=== PATIENT | female | born 1930 | race Caucasian/White ===

== ENCOUNTER 2016-06-14 | Outpatient (CLI) | payer MEDICARE | END 2016-06-14 11:43 | disposition critical access hospital (66) | CPT/HCPCS: A0425; A0429 ==

== ENCOUNTER 2016-06-14 12:54 | Emergency (ER) | payer MEDICARE ==
[2016-06-14] MEDS ORDERED: ACETAMINOPHEN 325 MG TABLET PO STA (14:33)
[2016-06-14] MEDS ORDERED: ACETAMINOPHEN 325 MG TABLET PO ONE (14:41)
== END 2016-06-14 17:30 | disposition home or self-care (01) ==
DX: S42.292A Other displaced fracture of upper end of left humerus, initial encounter for closed fracture (principal); W01.198A Fall on same level from slipping, tripping and stumbling with subsequent striking against other object, initial encounter; Y92.009 Unspecified place in unspecified non-institutional (private) residence as the place of occurrence of the external cause; Z79.01 Long term (current) use of anticoagulants
CPT/HCPCS: 36415; 70450; 72125; 73030; 73060; 73502; 80053; 83690; 85025; 85610; 99284; A9270

== ENCOUNTER 2016-11-27 23:58 | Outpatient (CLI) | payer MEDICARE | END 2016-11-27 23:59 | disposition home or self-care (01) | LOC: LAB.WCP 23:58 | PROVIDERS: ATTEND Family Medicine | DX: N39.0 Urinary tract infection, site not specified (principal) | CPT/HCPCS: 87077; 87086 ==

== ENCOUNTER 2017-01-13 19:09 | Outpatient (CLI) | payer MEDICARE, MEDICAID | END 2017-01-13 19:10 | disposition critical access hospital (66) | LOC: EMS 19:09 | PROVIDERS: ATTEND Surgery | DX: M79.601 Pain in right arm (principal) | CPT/HCPCS: A0425; A0429 ==

== ENCOUNTER 2017-01-13 19:28 | Emergency (ER) | payer MEDICARE, MEDICAID ==
--- NOTE | 2017-01-13 20:06 | ED Physician Documentation ---
History of Present Illness - Stated complaint Stated Complaint: RT ARM WEAKNESS AND PAIN, CONFUSION - Chief complaint Chief Complaint: Neuro - History obtained from History obtained from: Patient - History of Present Illness Timing: Yesterday - Additonal information Additional information: brought in by family; patient's daugher, at bedside, says patient has RUE problem since yesterday; unclear if it is weak or painful to move, but she has been using her LUE to move the RUE, and in a limited range at that. Also, family notes patient has been more confused than usual since earlier today, and has exhibited generalized weakness since this morning. Review of Systems Unable to obtain: Confused (limited ROS due to confusion) Constitutional: denies: Fever, Chills, Sweats Cardiac: denies: Chest pain / pressure Respiratory: denies: Dyspnea, Cough GI: denies: Vomiting, Diarrhea Musculoskeletal: denies: Joint pain (RUE) Neurologic: reports: Generalized weakness PD PAST MEDICAL HISTORY - Past Medical History Cardiovascular: VA, Arrhythmia, Other Neuro: Dementia, CVA GI: Other Derm: Other - Past Surgical History Past Surgical History: Yes Cardiovascular: Pacemaker - Present Medications Home Medications: Ambulatory Orders Medication Instructions Recorded Confirmed Aspirin Chewable [St Óscar 1 tab PO DAILY 01/13/17 01/13/17 Aspirin] Atorvastatin [Lipitor] 20 mg PO DAILY 01/13/17 01/13/17 Carvedilol [Coreg] 1 tab PO BID 01/13/17 01/13/17 Cephalexin [Keflex] 500 mg PO Q6HR 7 Days 01/13/17 Cholecalciferol (Vitamin D3) 1 tab PO DAILY 01/13/17 01/13/17 [Vitamin D3] Cranberry Fruit Concentrate 1 tab PO DAILY 01/13/17 01/13/17 [Cranberry] Ferrous Sulfate [Slow Fe] 1 tab PO DAILY 01/13/17 01/13/17 Fesoterodine Fumarate [Toviaz] 1 tab PO DAILY 01/13/17 01/13/17 Furosemide [Lasix] 1 tab PO DAILY 01/13/17 01/13/17 Glucosam/Chondr-MSM#6/Manganes 1 tab PO DAILY 01/13/17 01/13/17 [Glucosamine-Chondroitin Sftgl] Levothyroxine [Synthroid] 50 mg PO DAILY 01/13/17 01/13/17 Multivitamin [Multivitamins] 1 tab PO DAILY 01/13/17 01/13/17 Cordova-3/Dha/Epa/Fish Oil [Cordova 3 1 tab PO DAILY 01/13/17 01/13/17 500 Softgel] Sertraline HCl 1 tab PO DAILY 01/13/17 01/13/17 Trimethoprim 1 tab PO DAILY 01/13/17 01/13/17 Warfarin [Coumadin] 1 tab PO 01/13/17 - Allergies Allergies/Adverse Reactions: Allergies Allergy/AdvReac Type Severity Reaction Status Date / Time morphine Allergy Anaphylaxis Verified 01/13/17 19:46 Sulfa (Sulfonamide AdvReac Rash Verified 06/14/16 13:06 Antibiotics) - Social History Does the pt smoke?: No Smoking Status: Never smoker Does the pt drink ETOH?: No Does the pt have substance abuse?: No - Immunizations Immunizations are current?: No PD ED PE NORMAL - Vitals Vital signs reviewed: Yes - General General: No acute distress, Well developed/nourished, Other (awake, alert, answers are sometimes confused) - HEENT HEENT: Atraumatic, PERRL, EOMI, Moist mucous membranes - Cardiac Cardiac: RRR, No murmur - Respiratory Respiratory: No respiratory distress, Clear bilaterally - Abdomen Abdomen: Soft, Non tender - Derm Derm: Normal color, Warm and dry - Extremities Extremities: No edema, Other (tenderness to palpation right shoulder, anterolateral aspect) - Neuro Neuro: senior network engineer 2-12 intact, Normal speech, Other (4/5 bilateral plantarflexion. 3/5 bilateral leg raise (iliopsoas). 4/5 bilateral contract clerk automobile strength) Results - Vitals Vitals: Vital Signs - 24 hr 01/13/17 01/13/17 19:33 21:46 Temperature 36.6 C 36.1 C L Heart Rate 70 84 Respiratory 18 18 Rate Blood Pressure 145/82 H 138/66 H O2 Saturation 93 95 Oxygen O2 Source Room air - EKG (time done) No standard instances Rate: Rate (enter#) (71) Rhythm: Paced Drexel: LAD Intervals: Wide QRS - Labs Labs: Laboratory Tests 01/13/17 01/13/17 01/13/17 20:00 20:26 20:26 WBC 9.9 RBC 3.91 L Hgb 12.2 Hct 36.7 L MCV 93.9 MCH 31.2 H MCHC 33.2 RDW 15.6 H Plt Count 149 MPV 8.2 Neut # 6.4 Lymph # 2.5 Monona # 1.0 Eos # 0.0 Baso # 0.0 Absolute Nucleated RBC 0.00 Nucleated RBCs 0.0 PT INR APTT Sodium 136 Potassium 3.8 Chloride 101 Carbon Dioxide 27 Anion Gap 8.0 BUN 19 Creatinine 1.0 Estimated GFR (MDRD) 53 L Glucose 126 H Calcium 9.1 Total Bilirubin 0.7 AST 25 ALT 20 Alkaline Phosphatase 74 Total Protein 7.5 Albumin 3.5 Globulin 4.0 Albumin/Globulin Ratio 0.9 L Lipase 18 L Urine Color YELLOW Urine Clarity CLEAR Urine pH 6.0 Ur Specific B[place] 1.025 Urine Protein NEGATIVE Urine Glucose (UA) NEGATIVE Urine Ketones NEGATIVE Urine Occult Blood MODERATE H Urine Nitrite POSITIVE H Urine Bilirubin NEGATIVE Urine Urobilinogen 0.2 (NORMAL) Ur Leukocyte Esterase NEGATIVE Urine RBC 6-10 H Urine WBC 6-10 H Urine WBC Clumps PRESENT Ur Squamous Epith Cells FEW Squamous Urine Bacteria Many H Ur Microscopic Review INDICATED Urine Culture Comments INDICATED 01/13/17 20:26 WBC RBC Hgb Hct MCV MCH MCHC RDW Plt Count MPV Neut # Lymph # Monona # Eos # Baso # Absolute Nucleated RBC Nucleated RBCs PT 20.9 H INR 1.8 H APTT 33.2 Sodium Potassium Chloride Carbon Dioxide Anion Gap BUN Creatinine Estimated GFR (MDRD) Glucose Calcium Total Bilirubin AST ALT Alkaline Phosphatase Total Protein Albumin Globulin Albumin/Globulin Ratio Lipase Urine Color Urine Clarity Urine pH Ur Specific [place] Urine Protein Urine Glucose (UA) Urine Ketones Urine Occult Blood Urine Nitrite Urine Bilirubin Urine Urobilinogen Ur Leukocyte Esterase Urine RBC Urine WBC Urine WBC Clumps Ur Squamous Epith Cells Urine Bacteria Ur Microscopic Review Urine Culture Comments - Rads (name of study) CT head Radiology: Prelim report reviewed, See rad report right shoulder xrays Radiology: Prelim report reviewed, See rad report PD MEDICAL DECISION MAKING - ED course Complexity details: reviewed results, re-evaluated patient, considered differential, d/w family Departure - Departure Disposition: 01 Home, Self Care Clinical Impression: Urinary tract infection Condition: Good Instructions: ED UTI Cystitis Female Follow-Up: Fernando Genao MD [Primary Care Provider] - (Call in the morning to arrange for next available appointment) Prescriptions: Cephalexin [Keflex] 500 mg PO Q6HR 7 Days Discharge Date/Time: 01/13/17 22:30
[2017-01-13 20:07] LABS: BILIRUBIN,URINE NEGATIVE (NEGATIVE)
[2017-01-13 20:08] LABS: UA w/ MICROSCOPIC CHARGE YES
[2017-01-13 20:15] LABS: UR CULTURE IF IND INDICATED
[2017-01-13 20:42] LABS: BASOPHILS % (AUTO) 0.3 %; EOSINOPHILS % (AUTO) 0.1 %; HCT - HEMATOCRIT 36.7 % (37.0-47.0); HGB - HEMOGLOBIN 12.2 g/dL (12.0-16.0); LYMPHOCYTES # (AUTO) 2.5 10^3/uL (1.5-3.5); LYMPHOCYTES % (AUTO) 25.2 %; MEAN CORPUSCULAR HEMOGLOBIN 31.2 pg (27.0-31.0); MEAN CORPUSCULAR HGB CONC 33.2 g/dL (32.0-36.0); MEAN CORPUSCULAR VOLUME 93.9 fL (81.0-99.0); MEAN PLATELET VOLUME 8.2 fL (7.9-10.8); NEUTROPHILS # (AUTO) 6.4 10^3/uL (1.5-6.6); NEUTROPHILS % (AUTO) 64.4 %; RED BLOOD COUNT 3.91 10^6/uL (4.20-5.40); RED CELL DISTRIBUTION WIDTH 15.6 % (12.0-15.0); UNCORRECTED WHITE BLOOD COUNT 9.9 x10^3/uL; WHITE BLOOD COUNT 9.9 x10^3/uL (4.8-10.8)
[2017-01-13 20:49] LABS: INR 1.8 (0.8-1.2); PT - PROTHROMBIN TIME 20.9 secs (9.9-12.6)
[2017-01-13 20:53] LABS: ALBUMIN/GLOBULIN RATIO 0.9 (1.0-2.2); BILIRUBIN,TOTAL 0.7 mg/dL (0.2-1.0); CALCIUM 9.1 mg/dL (8.5-10.3); POTASSIUM 3.8 mmol/L (3.5-5.0); TOTAL PROTEIN 7.5 g/dL (6.7-8.2)
[2017-01-13 20:56] LABS: PARTIAL THROMBOPLASTIN TIME 33.2 secs (24.9-33.3)
--- NOTE | 2017-01-13 21:02 | CT Preliminary Report ---
Exam: CT Head W/O IMPRESSION: 1. Bilateral maxillary sinus mucosal disease. 2. Generalized age-related cortical atrophic changes without evidence of acute intracranial abnormali ty. [facility] SITE ID: [id number]
--- NOTE | 2017-01-13 21:14 | CT Report ---
EXAM: CT HEAD EXAM DATE: 01/13/2017 08:41 PM. CLINICAL HISTORY: Altered mental status. COMPARISON: 06/14/[address] TECHNIQUE: Multiaxial CT images were obtained from the foramen magnum to the vertex. IV contrast: Non e. Reformats: Coronal. In accordance with CT protocol optimization, one or more of the following dose reduction techniques w ere utilized for this exam: automated exposure control, adjustment of mA and/or KV based on patient s ize, or use of iterative reconstructive technique. FINDINGS: Parenchyma: No intraparenchymal hemorrhage. No evidence of mass, midline shift, or CT findings of acu te infarction. William-white differentiation is distinct. Extraaxial Spaces: Normal for age. No subdural or epidural collections identified. Ventricles: The ventricles and cortical sulci are enlarged, consistent with age-related tissue loss. Sinuses: Mucosal thickening and air-fluid levels are noted in both maxillary sinuses. Mastoids are cl ear. Remaining paranasal sinuses are unremarkable. Bones: No evidence of fracture or calvarial defect. Other: Diffuse chronic microangiopathic white matter changes are evident. IMPRESSION: 1. Bilateral maxillary sinus mucosal disease. 2. Generalized age-related cortical atrophic changes without evidence of acute intracranial abnormali ty. [facility] Referring Provider Line: [phone] SITE ID: [id number]
--- NOTE | 2017-01-13 21:14 | XRAY Preliminary Report ---
Exam: XR Shoulder 3 View RT IMPRESSION: 1. Mild degenerative changes. 2. No acute bony abnormality. [facility] SITE ID: [id number]
--- NOTE | 2017-01-13 21:25 | XRAY Report ---
EXAM: RIGHT SHOULDER RADIOGRAPHY EXAM DATE: 01/13/2017 08:55 PM. CLINICAL HISTORY: Limited range of motion, tenderness. COMPARISON: None. TECHNIQUE: 3 views. FINDINGS: Bones: Remote sternotomy. No fracture or bone lesion. Joints: Small osteophytes and subcortical sclerosis at the acromioclavicular joint. Mild narrowing at the glenohumeral joint with tiny osteophytes off the glenoid rim. Bones and anatomic alignment. Soft tissues: The visualized hemithorax is unremarkable. No soft tissue swelling. IMPRESSION: 1. Mild degenerative changes. 2. No acute bony abnormality. [facility] Referring Provider Line: [phone] SITE ID: [id number]
[2017-01-13] MEDS ORDERED: ACETAMINOPHEN 325 MG TABLET PO STA (21:39)
[2017-01-13] MEDS ORDERED: CEPHALEXIN 250 MG CAPSULE PO STA (21:41)
[2017-01-13 21:46] VITALS: BP 138/66
[2017-01-13] MEDS ORDERED: CEPHALEXIN 250 MG CAPSULE PO ONE (21:47)
[2017-01-13] MEDS ORDERED: ACETAMINOPHEN 325 MG TABLET PO ONE (21:47)
== END 2017-01-13 22:30 | disposition home or self-care (01) ==
LOC: EDUNIT# → ED 19:28
DX: N39.0 Urinary tract infection, site not specified (principal); M25.511 Pain in right shoulder; I25.2 Old myocardial infarction; I49.9 Cardiac arrhythmia, unspecified; F03.90 Unspecified dementia, unspecified severity, without behavioral disturbance, psychotic disturbance, mood disturbance, and anxiety; Z86.73 Personal history of transient ischemic attack (TIA), and cerebral infarction without residual deficits; Z95.0 Presence of cardiac pacemaker; Z79.82 Long term (current) use of aspirin; Z79.01 Long term (current) use of anticoagulants
CPT/HCPCS: 36415; 51701; 70450; 73030; 80053; 81001; 83690; 85025; 85610; 85730; 87077; 87086; 87181; 93005; 99284; A9270; 81003

== ENCOUNTER 2017-02-07 11:30 | Outpatient (CLI) | payer MEDICARE, MEDICAID ==
[2017-02-07 19:39] LABS: BASOPHILS % (AUTO) 0.7 %; EOSINOPHILS % (AUTO) 0.9 %; HCT - HEMATOCRIT 39.1 % (37.0-47.0); HGB - HEMOGLOBIN 12.7 g/dL (12.0-16.0); LYMPHOCYTES # (AUTO) 1.5 10^3/uL (1.5-3.5); MEAN CORPUSCULAR HEMOGLOBIN 30.6 pg (27.0-31.0); MEAN CORPUSCULAR HGB CONC 32.5 g/dL (32.0-36.0); MEAN CORPUSCULAR VOLUME 94.1 fL (81.0-99.0); MEAN PLATELET VOLUME 8.5 fL (7.9-10.8); MONOCYTES # (AUTO) 0.4 10^3/uL (0.0-1.0); MONOCYTES % (AUTO) 8.7 %; NEUTROPHILS # (AUTO) 3.1 10^3/uL (1.5-6.6); NEUTROPHILS % (AUTO) 59.7 %; NUCLEATED RED BLOOD CELLS AUTO 0.2 /100WBC; RED BLOOD COUNT 4.16 10^6/uL (4.20-5.40); RED CELL DISTRIBUTION WIDTH 15.4 % (12.0-15.0); UNCORRECTED WHITE BLOOD COUNT 5.1 x10^3/uL; WHITE BLOOD COUNT 5.1 x10^3/uL (4.8-10.8)
[2017-02-07 19:49] LABS: ALBUMIN/GLOBULIN RATIO 0.9 (1.0-2.2); BILIRUBIN,TOTAL 0.7 mg/dL (0.2-1.0); BUN - BLOOD UREA NITROGEN 17 mg/dL (6-20); CALCIUM 9.2 mg/dL (8.5-10.3); CARBON DIOXIDE - CO2 32 mmol/L (21-32); CHLORIDE 102 mmol/L (101-111); CREATININE 0.9 mg/dL (0.4-1.0); GFR - MDRD 59 (>89); GLUCOSE 95 mg/dL (70-100); POTASSIUM 3.3 mmol/L (3.5-5.0); SODIUM 140 mmol/L (135-145); TOTAL PROTEIN 7.6 g/dL (6.7-8.2)
== END 2017-02-07 11:31 | disposition home or self-care (01) ==
LOC: LAB.WCP 11:30
PROVIDERS: ATTEND Family Medicine
DX: I48.0 Paroxysmal atrial fibrillation (principal); I50.9 Heart failure, unspecified; I25.10 Atherosclerotic heart disease of native coronary artery without angina pectoris; I10 Essential (primary) hypertension
CPT/HCPCS: 36415; 80053; 83880; 84443; 85025

== ENCOUNTER 2017-02-21 11:00 | Outpatient (CLI) | payer MEDICARE, MEDICAID ==
[2017-02-21 19:37] LABS: CALCIUM 9.1 mg/dL (8.5-10.3); CREATININE 0.9 mg/dL (0.4-1.0); POTASSIUM 3.6 mmol/L (3.5-5.0)
== END 2017-02-21 11:01 | disposition home or self-care (01) ==
LOC: LAB.WCP 11:00
PROVIDERS: ATTEND Physician Assistant
DX: R60.0 Localized edema (principal)
CPT/HCPCS: 36415; 80048

== ENCOUNTER 2017-10-03 16:01 | Outpatient (CLI) | payer MEDICARE, MEDICAID ==
--- NOTE | 2017-10-07 12:01 | Mammography Report ---
DIGITAL SCREENING MAMMOGRAM: 10/03/2017 CLINICAL INDICATION: An 87-year-old with family history of breast cancer for screening. COMPARISON: 04/2015, 04/2014, 07/2012, 06/2011, 06/2010. TECHNIQUE: Routine CC and MLO projections were obtained of the breasts. Positioning is limited by the patient's general condition. FINDINGS: The breasts again demonstrate scattered fibroglandular densities bilaterally. Coarse and punctate, typically benign calcifications are present. No suspicious masses, clustered microcalcifications, or regions of architectural distortion are identified. IMPRESSION: BENIGN FINDINGS. RECOMMENDATION: Routine annual screening unless otherwise clinically indicated. BI-RADS CATEGORY 2 - BENIGN FINDINGS. STANDARD QUALIFYING STATEMENTS: 1. This examination was reviewed with the aid of Computer-Aided Detection (CAD). 2. A negative or benign imaging report should not delay biopsy if clinically suspicious findings are present. Consider surgical consultation if warranted. More than 5% of cancers are not identified by imaging. 3. Dense breasts may obscure an underlying neoplasm. TD: 10/07/2017 11:55
== END 2017-10-03 16:02 | disposition home or self-care (01) ==
LOC: DI.N 16:01
PROVIDERS: ATTEND Family Medicine
DX: Z12.31 Encounter for screening mammogram for malignant neoplasm of breast (principal)
CPT/HCPCS: 77067

== ENCOUNTER 2017-10-25 12:41 | Outpatient (CLI) | payer MEDICARE, MEDICAID ==
--- NOTE | 2017-10-26 00:43 | XRAY Report ---
EXAM: BILATERAL KNEE RADIOGRAPHY EXAM DATE: 10/25/2017 01:51 PM. CLINICAL HISTORY: OSTEOARTHRITIS SEVERE. COMPARISON: 11/13/2016. TECHNIQUE: 2 views each knee. FINDINGS: Right: Bones: Normal. No fractures or bone lesions. Joints: Severe osteoarthritis, with complete collapse of the medial femorotibial joint space. No effu janene. Soft Tissues: Surgical clips in the medial soft tissues. Dystrophic calcifications. Left: Bones: Normal. No fracture or bone lesion. Joints: Severe osteoarthritis, with complete collapse of the medial femorotibial joint space. Soft Tissues: Normal. No soft tissue swelling. IMPRESSION: Severe bilateral osteoarthritis. Right: Kellgren Monico Grade 4. Left: Kellgren Monico Grade 4. Kellgren and Monico classification of osteoarthritis: Grade 0: no radiographic features of osteoarthritis are present Grade 1: doubtful joint space narrowing (JSN) and possible osteophytic lipping Grade 2: definite osteophytes and possible JSN on anteroposterior weight-bearing radiograph Grade 3: multiple osteophytes, definite JSN, sclerosis, possible bony deformity Grade 4: large osteophytes, marked JSN, severe sclerosis and definite bony deformity [facility] Referring Provider Line: [phone] SITE ID: [id number]
== END 2017-10-25 12:42 | disposition home or self-care (01) ==
LOC: DI 12:41
PROVIDERS: ATTEND Family Medicine
DX: M17.0 Bilateral primary osteoarthritis of knee (principal)
CPT/HCPCS: 73565

== ENCOUNTER 2017-10-30 12:00 | Outpatient (CLI) | payer MEDICARE, MEDICAID | END 2017-10-30 12:01 | disposition home or self-care (01) | LOC: LAB.WCP 12:00 | PROVIDERS: ATTEND Family Medicine | DX: N39.0 Urinary tract infection, site not specified (principal) | CPT/HCPCS: 87077; 87086; 87181 ==

== ENCOUNTER 2017-11-12 08:00 | Outpatient (CLI) | payer MEDICARE, MEDICAID ==
[2017-11-12 18:49] LABS: BILIRUBIN,URINE NEGATIVE (NEGATIVE); GLUCOSE, URINE (UA) NEGATIVE (NEGATIVE); KETONES,URINE (UA) NEGATIVE (NEGATIVE); LEUKOCYTE ESTERASE, URINE MODERATE (NEGATIVE); NITRITE,URINE POSITIVE (NEGATIVE); OCCULT BLOOD,URINE SMALL (NEGATIVE); PH,URINE 5.5 PH (5.0-7.5); PROTEIN,URINE NEGATIVE (NEGATIVE); UROBILINOGEN,URINE 0.2 (NORMAL) E.U./dL (NORMAL)
[2017-11-12 19:06] LABS: BACTERIA,URINE Moderate /HPF (None Seen); CLARITY,URINE CLEAR (CLEAR); RBC,URINE 0-5 /HPF (0-5); SQUAMOUS EPITHELIAL CELL,UR RARE Squamous (<= Few); WBC CLUMPS,URINE PRESENT
== END 2017-11-12 08:01 ==
LOC: LAB.WCP 08:00
PROVIDERS: ATTEND Family Medicine
DX: N39.0 Urinary tract infection, site not specified (principal)
CPT/HCPCS: 81001; 87077; 87086; 87181

== ENCOUNTER → 2018-01-21 | Outpatient (CLI) | payer MEDICARE, MEDICAID | LOC: LAB.WCP 08:00 | PROVIDERS: ATTEND Family Medicine | DX: N39.0 Urinary tract infection, site not specified (principal) | CPT/HCPCS: 87086 ==

== ENCOUNTER 2018-02-04 20:37 | Outpatient (CLI) | payer MEDICARE, MEDICAID ==
--- NOTE | 2018-02-04 20:58 | CONSULTATION NOTE ---
Palliative Care Consultation - Referral Referring Provider: Dr. Deloris Bolton/Dr. Caleb Genao Time of Visit: Referral setting: Home Referral Reason: Dementia/Recurrent UTIs/Functional decline - Information Sources Records reviewed: Previous records reviewed History/Review of Systems obtained from: Patient, Family (most of history from Milka daughter) Exam limitations: Clinical condition (patient with dementia) - History of Present Illness Brief History of Present Illness: This is an 87-year-old woman to has multiple comorbidities, and has had ongoing functional and cognitive decline. 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 She has lived with her daughter for about 10 years, originally she was quite self-sufficient, able to drive, and manage her own care. She started having problems with navigating is how her stroke was revealed. She has become more dependent particularly since her left shoulder fracture in 2017. She is wheelchair-bound at this point, can pivot and take few steps for transfers, is having some trouble with swallowing, needs assistance with feeding with cueing and oversight, she can speak with a few short sentences, and answer some yes or no questions. She is incontinent unless doing timed toileting, and has had increasing problems with recurrent UTIs, which are demonstarted with increased confusion, weakness, and changes in the urine.. She has been tried prophylactically on trimethoprim as, she is allergic to sulfa. But became resistant to this, most recently trialed on nitrofurantoin 100 mg, but her most recent urine specimen that was cultured in October showed it resistance to this as well. She has just recently completed a round of Augmentin, and previous to this was treated with Levaquin in October She has multiple other comorbidities including atrial fib, with a history of cardioversion, currently on Coumadin, heart failure, osteoarthritis, ischemic bowel, and treated for depression. Patient's dementia does not present with neuropsychiatric behaviors she has no agitation, hallucinations, or paranoia. Patient becoming more homebound, functional status and cognitive status declining, palliative care to provide support with the focus on quality of life recognizing quantity of life is limited. Here also to establish goals of care. Medical/Surgical History - Past Medical History Cardiovascular: reports: Congestive heart failure, Coronary artery disease, MT, Atrial fibrillation Neuro: reports: Dementia, CVA GI: reports: Other (ischemic bowel disease in 2009) : reports: Incontinence, Chronic bladder infection, Renal insuffiency HEENT: reports: Chronic vision loss, Glaucoma, Chronic hearing loss Psych: reports: Depression Musculoskeletal: reports: Osteoarthritis, Other (left shoulder fracture 2017; right rib fracture 2018) MRSA Hx?: No - Past Surgical History General: reports: Bowel surgery (resection for ischemic bowel), Hiatal hernia repair Cardiovascular: reports: CABG, Pacemaker Social History - Living Situation Living arrangement: Other (living at daughter's home) Living Situation: With family (living with Daughter Milka and ; Milka works almost full-time. They do have [employer] with 215 hours per month, currently they have 2 caregivers, using IPP. They do use [employer]endez has in [place] about once a week, she does enjoy a socializations. She is not having the [employer] transport anymore, because she is getting very difficult.) Family History - Family History Family History: Mother: (father MT age 60), MT (mother at 76, ), Father: , CAD, MT, Other family: Alive and Well (siblings one heart attack/one cancer) Family History Comment/Other: has 2 boys; 6 girls; 40 years [facility] Medications/Allergies - Medications Home Medications: Ambulatory Orders Medication Instructions Recorded Confirmed Aspirin Chewable [St Óscar 81 mg PO DAILY 01/13/17 02/04/18 Aspirin] Atorvastatin [Lipitor] 20 mg PO DAILY 01/13/17 02/04/18 Carvedilol [Coreg] 12.5 mg PO BID 01/13/17 01/13/17 Cholecalciferol (Vitamin D3) 2,000 units PO DAILY 01/13/17 01/13/17 [Vitamin D3] Ferrous Sulfate [Slow Fe] 325 mg PO DAILY 01/13/17 02/04/18 Fesoterodine Fumarate [Toviaz] 4 mg PO DAILY 01/13/17 01/13/17 Furosemide [Lasix] 40 mg PO DAILY 01/13/17 02/04/18 Levothyroxine [Synthroid] 50 mg PO DAILY 01/13/17 02/04/18 Sertraline HCl 50 mg PO DAILY 01/13/17 02/08/18 Warfarin [Coumadin] 1 tab PO 01/13/17 D-Mannose [Mannxtra] 600 mg PO DAILY 02/04/18 02/04/18 Nitrofurantoin [Macrobid] 100 mg PO DAILY 02/04/18 02/04/18 - Allergies Allergies/Adverse Reactions: Allergies Allergy/AdvReac Type Severity Reaction Status Date / Time morphine Allergy Anaphylaxis Verified 01/13/17 19:46 Sulfa (Sulfonamide AdvReac Rash Verified 06/14/16 13:06 Antibiotics) Review of Systems - Constitutional Constitutional: reports: Fatigue, Weight stable (161.7). denies: Fever, Chills - Eyes Eyes: reports: Vision loss - Ears, Nose & Throat Ears, Nose & Throat: reports: Hearing loss, Other (some choking noted; is able to self feed is supervised and cued) - Cardiovascular Cardiovascular: reports: Edema, Decr. exercise tolerance, Other (CHF known ejection %) - Gastrointestinal Gastrointestinal: reports: Good appetite - Genitourinary Genitourinary: reports: Incontinence - Musculoskeletal Musculoskeletal: reports: Stiffness, Muscle weakness, Assistive devices (needs cueing and assistance to transfer) - Integumentary Integumentary: reports: Dryness - Neurological Neurological: reports: General weakness, Memory problems (able to responds yes/no; a few sentences but does not initiate conversation; responsive and interactive with family/caregivers) - Psychiatric Psychiatric: denies: Depression, Anxiety - Hematologic/Lymphatic Hematologic/Lymphatic: reports: Recurrent infections (UTIs; becoming more resistent; memory issues worsen) - All Other Systems All Other Systems: reports: Reviewed and negative Physical Exam - Vital Signs Temperature: 96.1 C Pulse Rate: 72 Respiratory Rate: 18 O2 Saturation: 92 (ra @ rest) Blood Pressure: 118/64 - Physical Exam General Appearance: positive: No acute distress Eyes Bilateral: positive: Normal inspection ENT: positive: No signs of dehydration Neck: positive: No JVD, Trachea midline Cardiovascular: positive: Irregularly irregular Respiratory: positive: Diminished in bases Abdomen: positive: Non-tender, Soft, Nml bowel sounds Skin: positive: Pallor, Dryness Extremities: positive: Pedal edema (trace pedal edema) Neurologic/Psychiatric: positive: Mood/affect nml, Disoriented to place, Disoriented to time, Facial droop (left residual from CVA) Palliative Care - POLST Patient has POLST: Yes POLST Status: Full Code (discussed with daughter needs to be updated to DNAR; but needs to talk to siblings) Pain: Pain unchanged, Location (left shoulder pain from fall/fracture; displaced not a surgical candidate; has bilat knee osteoarthritis; has had injections with some improvement) Performance Status: Patient quite impulsive needs to be watched most the time, she is dependent for all ADLs including bathing, dressing, toileting and. Care. She can mostly self-feed, but needs supervision and cueing to be safe, she does have some choking at times. She needs her food cut in small bites. She has significant mobility issues, balance and impulsivity makes it unsafe for her to ambulate with walker. - Palliative Care Discussion: Discussed goals for patient with daughter. Reports the original JES ST, was based on an experience/story patient had heard around that time. Daughter herself recognizes patient's fragile status, that DNA are is more appropriate given the current setting, but does need to check in follow-up with her siblings. JES ST was reviewed as well as provided "hard choices for loving people". Her goal is to focus on keeping her as comfortable and at home as long as possible, because he does need to work and has not really done any further long-term planning in the context of if patient worsens. But is much more difficult to get her out, is hoping palliative care to provide support regarding patient's propensity for UTIs, is interested in home coag check, and wanting to explore things that might improve patient's quality of life. Impression and Recommendations - Palliative Care Impression: This is an 87-year-old woman with multiple comorbidities, presenting with functional and cognitive decline, and very frail. She is high risk for the sequela of a fall and there is concern for her developing multidrug resistance to ongoing UTIs. Palliative care to continue provide support for defining goals of care, symptom management, and simplifying treatment plan if possible. Recommendations/Counseling Done: 1. Atrial fib. Patient has been on Coumadin, is becoming more numerous to take the patient out. Discussed patient may be a candidate actually to have an alternative, including Eliquis. This is also would increase her safety if she were to have a fall or problems with bleeding. She is in agreement for me to follow with Dr. Bolton regarding this, did agree if does need ongoing pro times, would contact and arrange for [employer] home monitoring system. 2. Frequent UTIs. Patient just finished antibiotic, she thought may be would be having some increased symptoms that was a little bit soon for this. She did have some increased confusion and word finding. Patient quite interactive and doing better today. Did discuss patient with her dementia will have fluctuating status, because of her increasing multidrug resistance, will try and get specimens prior to treatment. Patient though can be treated in the meantime, has most recently responded to Augmentin. I follow-up on last urine specimen is resistant to nitrofurantoin, instructed to discontinue this at this point. She is on d-mannose 600 mg daily for prevention, this is only been shown to find it effective in E. coli, her last 2 specimens have Klebsiella pneumonia. Counseling regarding this is going to be a significant issue moving forward she does have had and urine specimens, will contact me if symptoms and will continue to weigh benefits and burdens of treating moving forward. 3. Advanced care planning. Discussed JES ST with daughter, patient no longer presents with decision-making capacity. Does feel most appropriate to have patient has a DNA R, but will follow up with family and address at next visit. Did discuss given she is on ermias, would suggest putting her on wait list for different dementia units, she would continue to decline and needed further placement this can be complicated. Will continue to evaluate may need to meet with medical palliative care social sciences instructor if her care needs increased dramatically. face to face for wheelchair Patient needs a high strength lightweight wheelchair as a way to correct for height for patient to self propel with her feet.Patient's height of 58 inches requires lower seat to floor height to increase independence with self propulsion for ADLs.Client is more likely to use feet for propulsion due to increased pain with movement in left shoulder from previous fracture. Patient is unable to use cane or walker for functional mobility in her home because of need for assistance, cognitive deficits, balance issues, decreased strength and high fall risk. Patient will be reliant upon a wheelchair to accomplish all related aids to daily living in the home such as toileting, feeding, bathing, and grooming due to her mobility limitations. Addendum. 02/05. Did hear back from Dr. Bolton in agreement and feels would be a good plan for patient to transition over to Eliquis. Daughter has been instructed to DC aspirin and warfarin, and start Eliquis next day. Time Spent: 90 minutes with greater than 50% of this done in counseling coordination of care regarding [id number] for wheelchair, follow-up with PCP regarding anticoagulant issues, counseling for pain and symptom management as well as anticipatory guidance and advanced care planning
== END 2018-02-04 20:38 | disposition home or self-care (01) ==
LOC: PC 20:37
PROVIDERS: ATTEND Nurse Practitioner Adult Health
DX: Z51.5 Encounter for palliative care (principal); F01.50 Vascular dementia, unspecified severity, without behavioral disturbance, psychotic disturbance, mood disturbance, and anxiety; I48.91 Unspecified atrial fibrillation; Z87.440 Personal history of urinary (tract) infections; R29.6 Repeated falls; I50.9 Heart failure, unspecified; F32.9 Major depressive disorder, single episode, unspecified; Z79.01 Long term (current) use of anticoagulants; R13.10 Dysphagia, unspecified; R32 Unspecified urinary incontinence; Z99.3 Dependence on wheelchair; S42.92XS Fracture of left shoulder girdle, part unspecified, sequela; M25.512 Pain in left shoulder; W19.XXXS Unspecified fall, sequela; R54 Age-related physical debility; I69.918 Other symptoms and signs involving cognitive functions following unspecified cerebrovascular disease; H40.9 Unspecified glaucoma; H54.7 Unspecified visual loss; H91.90 Unspecified hearing loss, unspecified ear; M19.90 Unspecified osteoarthritis, unspecified site; Z95.1 Presence of aortocoronary bypass graft; Z95.0 Presence of cardiac pacemaker; Z79.82 Long term (current) use of aspirin
CPT/HCPCS: 99345

== ENCOUNTER 2018-02-19 12:20 | Outpatient (CLI) | payer MEDICARE, MEDICAID ==
--- NOTE | 2018-02-19 19:05 | CONSULTATION NOTE ---
Palliative Care Follow Up - Referral Referring Provider: Dr. Cindy Bolton Time of Visit: 03-05 Referral setting: Home - Information Sources Records reviewed: Previous records reviewed History/Review of Systems obtained from: Patient, Family (daughter Milka providing most of history) Exam limitations: Clinical condition (patient with advanced dementia) - History of Present Illness Update Brief HPI Update: This is an 87-year-old woman with dementia, has multiple comorbidities and ongoing functional and cognitive decline. 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 She does live with her daughter Milka, for about 10 years, had originally been is quite self-sufficient and now is very much dependent. She is mostly wheelchair bound at this point, has some trouble with swallowing, definitely is having increased needs for cueing, sequencing, and oversight as she is impulsive. She is incontinent and less doing time toileting, she has had frequent UTIs, that are usually identified by alteration in mental status. Previously she was fluctuating as far as confusion and energy day to day, now she is somewhat demonstrating this issue just through the out the day. She is not in any kind of distress, She is verbal and able to respond to questions, but does not initiate conversation. She has recently finished a round of Augmentin, was treated with Levaquin in October, we did discontinue her prophylactic Macrobid as her last C&S showed resistance to this medication. She has multiple other comorbidities including atrial fib, with a history of cardioversion, she has been transitioned over to Eliquis off Coumadin. She also has known heart failure, osteoarthritis, of concern and watchful waiting is ischemic bowel, and being treated for depression. Patient now is mostly homebound, and it is with great difficulty to get her on going out to appointments, palliative care to provide support and anticipatory guidance reg arding patient's ongoing decline Social History - Living Situation Living arrangement: At home Living Situation: With family (lives with daugther and ; Daughter will be going on vacation, she will be staying with her other daughter Farida eng at [address] in [place]. Her phone number is [phone]. This will be 02/21 through 03/06.They do have an independent provider for ermias 3 days a week, they have had difficulty getting her other hours filled through breast care, this is been quite frustration for the daughter. They are looking for another independent provider. If she is unable to get caregiving, she does take her up to [facility] in adult daycare.) Medications/Allergies - Medications Home Medications: Ambulatory Orders Medication Instructions Recorded Confirmed Aspirin Chewable [St Óscar 81 mg PO DAILY 01/13/17 02/20/18 Aspirin] Atorvastatin [Lipitor] 20 mg PO DAILY 01/13/17 02/20/18 Carvedilol [Coreg] 12.5 mg PO BID 01/13/17 02/20/18 Cholecalciferol (Vitamin D3) 2,000 units PO DAILY 01/13/17 02/20/18 [Vitamin D3] Ferrous Sulfate [Slow Fe] 325 mg PO DAILY 01/13/17 02/20/18 Fesoterodine Fumarate [Toviaz] 4 mg PO DAILY 01/13/17 02/20/18 Furosemide [Lasix] 40 mg PO DAILY 01/13/17 02/20/18 Levothyroxine [Synthroid] 50 mg PO DAILY 01/13/17 02/20/18 Sertraline HCl 50 mg PO DAILY 01/13/17 02/20/18 D-Mannose [Mannxtra] 600 mg PO DAILY 02/04/18 02/20/18 Apixaban [Eliquis] 5 mg PO BID 02/20/18 02/20/18 - Allergies Allergies/Adverse Reactions: Allergies Allergy/AdvReac Type Severity Reaction Status Date / Time morphine Allergy Anaphylaxis Verified 01/13/17 19:46 Sulfa (Sulfonamide AdvReac Rash Verified 06/14/16 13:06 Antibiotics) Review of Systems - Constitutional Constitutional: reports: Fatigue, Weight loss (159.8 down a few pounds from baseline) - Ears, Nose & Throat Ears, Nose & Throat: reports: Dental decay - Cardiovascular Cardiovascular: reports: Irregular heart rate, Edema, Decr. exercise tolerance - Respiratory Respiratory: denies: SOB at rest - Gastrointestinal Gastrointestinal: reports: Other. denies: Constipation, Nausea - Genitourinary Genitourinary: reports: Incontinence - Musculoskeletal Musculoskeletal: reports: Stiffness, Muscle weakness, Assistive devices (working with PT to strengthen LE to maintiain abilitly to transfer, can only walk few steps with walker/supervision/cueing), Transfer issues (pivot transfers with assist) - Neurological Neurological: reports: Memory problems (able to speak in sentences/answer easy questions/ not always appropriate answers/very sweet sense of humor) - Psychiatric Psychiatric: reports: Hallucinations (occasionally worse with UTIs), Other (impulsive). denies: Behavior disturbances - Hematologic/Lymphatic Hematologic/Lymphatic: reports: Recurrent infections (UTIs) - All Other Systems All Other Systems: reports: Reviewed and negative Physical Exam - Vital Signs Temperature: 95.9 C Pulse Rate: 70 Respiratory Rate: 18 O2 Saturation: 95 (ra @ rest) Blood Pressure: 112/72 - Physical Exam General Appearance: positive: No acute distress Eyes Bilateral: positive: Normal inspection ENT: positive: No signs of dehydration Neck: positive: No JVD, Trachea midline Cardiovascular: positive: Irregularly irregular Respiratory: positive: Breath sounds nml, Diminished in bases Abdomen: positive: Non-tender, Soft, Nml bowel sounds Skin: positive: Dryness, Other (few scratches). negative: Pressure wound Extremities: positive: Pedal edema (trace up to knees) Neurologic/Psychiatric: positive: Mood/affect nml, Disoriented to time, Weakness. negative: Depressed mood/affect Palliative Care - POLST Patient has POLST: Yes POLST Status: Full Code Pain: No pain Performance Status: Patient dependent for all ADLs, she does have some difficulty eating and needs some assist, they have to cut up her food fairly fine, most of assistance is not related to swallowing but cueing as far as the steps to eat. She does have 24-hour care and supervision provided between the daughter and caregivers. - Palliative Care Discussion: Daughter had explored POLST, and does feel like she needs to be a DO NOT RESUSCITATE. She feels like her sister in [place] is in agreement, will be seeing her brother and needs to finish talking to family. Aware currently defaults to full code, will address at our next visit as she is the designated DPOA. Patient herself is quite delightful, she finds that her memory is getting worse and she finds it "aggravating". She perceives all the help and care she is getting as "making her get lazy", but she does enjoy the attention. Daughter's perception is she still has good quality of life, is aware and able to interact with family, and does not have a high degree of suffering. Impression and Recommendations - Palliative Care Impression: This is an 87-year-old woman with multiple comorbidities, including vascular dementia, recurrent UTIs, atrial fib, and functional decline. She is at high risk for this sequela of a fall, concern for developing multiple drug resistance to her ongoing UTIs, and history of ischemic bowel. Palliative care to continue provide support for defining goals of care, symptom management, and simplifying treatment plan. Recommendations/Counseling Done: 1. Atrial fib. Patient has been started on Eliquis, no further need for pro time monitoring, this is decreased stressors dramatically in the home. 2. Generalized weakness. Phone call and follow-up on ordered wheelchair, will deliver while at sister's house. Patient continue to work with physical therapy, goal is to maintain and be able to continue with transfers to be able to remain in daughter's home. 3. Frequent UTIs. Reviewed threshold as far as symptom management and symptomology for obtaining Urine specimen. Daughter verbalizes understanding, he does have a, order slip, and hazard bag has been instructed to notify me and delivered to [employer] if symptomatic. 4. Advanced care planning. Follow-up regarding the J[facility] with daughter, does feel she should be a DNA R, will be traveling this next couple weeks, seeing family and plans to confirm and review goals with other siblings. Time Spent: 60 minutes with good 50% of this done in counseling regarding symptom management, anticipatory guidance, and goal's of care counseling
== END 2018-02-19 12:21 | disposition home or self-care (01) ==
LOC: PC 12:20
PROVIDERS: ATTEND Nurse Practitioner Adult Health
DX: Z51.5 Encounter for palliative care (principal); I48.91 Unspecified atrial fibrillation; R53.1 Weakness; R53.83 Other fatigue; Z87.440 Personal history of urinary (tract) infections; R32 Unspecified urinary incontinence; I63.9 Cerebral infarction, unspecified; F01.50 Vascular dementia, unspecified severity, without behavioral disturbance, psychotic disturbance, mood disturbance, and anxiety; I50.9 Heart failure, unspecified; F32.9 Major depressive disorder, single episode, unspecified; R13.10 Dysphagia, unspecified; Z99.3 Dependence on wheelchair; R29.6 Repeated falls; M19.90 Unspecified osteoarthritis, unspecified site; Z79.01 Long term (current) use of anticoagulants; Z79.82 Long term (current) use of aspirin
CPT/HCPCS: 99350

== ENCOUNTER 2018-02-24 11:20 | Outpatient (CLI) | payer MEDICARE, MEDICAID ==
[2018-02-24 19:28] LABS: BILIRUBIN,URINE NEGATIVE (NEGATIVE); GLUCOSE, URINE (UA) NEGATIVE (NEGATIVE); KETONES,URINE (UA) NEGATIVE (NEGATIVE); LEUKOCYTE ESTERASE, URINE MODERATE (NEGATIVE); NITRITE,URINE NEGATIVE (NEGATIVE); OCCULT BLOOD,URINE SMALL (NEGATIVE); PROTEIN,URINE NEGATIVE (NEGATIVE); UROBILINOGEN,URINE 0.2 (NORMAL) E.U./dL (NORMAL)
[2018-02-24 19:29] LABS: CLARITY,URINE HAZY (CLEAR)
[2018-02-24 19:55] LABS: BACTERIA,URINE Few /HPF (None Seen); RBC,URINE 0-5 /HPF (0-5); SQUAMOUS EPITHELIAL CELL,UR RARE Squamous (<= Few)
== END 2018-02-24 11:21 | disposition home or self-care (01) ==
LOC: LAB.WCP 11:20
PROVIDERS: ATTEND Nurse Practitioner Adult Health
DX: R30.0 Dysuria (principal)
CPT/HCPCS: 81001; 81003; 87086; 87181

== ENCOUNTER 2018-03-25 16:52 | Outpatient (CLI) | payer MEDICARE, MEDICAID ==
--- NOTE | 2018-03-25 16:58 | CONSULTATION NOTE ---
Palliative Care Follow Up - Referral Referring Provider: Dr. Deloris Bolton Time of Visit: Referral setting: Home Referral Reason: CHF/f/up Pontine hemmorhage/[facility] - Information Sources Records reviewed: Previous records reviewed History/Review of Systems obtained from: Patient, Family (update by daughter Milka beginning of visit;), Caregiver (caregiver Madie) Exam limitations: Clinical condition (patient with advanced dementia) - History of Present Illness Update Brief HPI Update: This is Destiny 87-year-old woman who has dementia, has multiple comorbidities, her dementia as a result of his CVA and noted to be vascular in origin. Unfortunately when she was at a daycare, she had a fall after she lost her balance. She sustained a small 0.8 x 0.6 cm acute hemorrhage in the anterior margin of the hermes. She does have noted severe diffuse cerebral volume loss, and micro vascular chronic ischemic changes, as well as chronic bilateral occipital infarcts and right thalamic lacunar infarct. Patient was seen at [facility], they kept her for [address] a repeat CT scan that was unchanged. They did put her Eliquis on hold. Patient was also found to be hypovolemic, and has had her Lasix on hold as well. She does have a small laceration in the back of her head that is healing nicely with 4 noted bandar, and a skin tear along with severe bruising on her left forearm of 1.5 x 2.5 cm very shallow no signs or symptoms of infection. Originally it is thought her left wrist was without fracture, and follow-up at the provider's office they did find a break per her daughter. Patient presents today is alert, interactive, her neuro signs are within normal limits. She is her usual verbal self, can answer questions, has a good sense of humor, her short-term memory and answers can be somewhat nonsensical but she does socially engaged. She has trace pedal edema up to about mid calf, she has some fine crackles in her left lower lobe, Denies any respiratory distress. Her O2 sats are 95% on room air at rest. She does have some discomfort with her wrist but only on a manipulation, otherwise denies pain. She does not recall the fall though she is aware she has had a fall particularly with the splint on her left arm. She does have some swelling in her fingers, circulation is good, and movement without concern. Social History - Living Situation Living arrangement: At home Living Situation: With family Support System: Patient lives at home with her daughter, who does work. She does have a regular caregiver Madie, who is there for the visit today, this is supplied to [facility]. When she does not have a caregiver, she does take her to daycare up in [place] this is where the accident had happened. Milka has recently taken a vacation, she reports this has helped with her caregiver fatigue, though this has been quite a stressful turn of events. Medications/Allergies - Medications Home Medications: Ambulatory Orders Medication Instructions Recorded Confirmed Aspirin Chewable [St Óscar 81 mg PO DAILY 01/13/17 03/25/18 Aspirin] Atorvastatin [Lipitor] 20 mg PO DAILY 01/13/17 03/25/18 Carvedilol [Coreg] 12.5 mg PO BID 01/13/17 03/25/18 Cholecalciferol (Vitamin D3) 2,000 units PO DAILY 01/13/17 03/25/18 [Vitamin D3] Ferrous Sulfate [Slow Fe] 325 mg PO DAILY 01/13/17 03/25/18 Fesoterodine Fumarate [Toviaz] 4 mg PO DAILY 01/13/17 03/25/18 Furosemide [Lasix] 20 mg PO DAILY 01/13/17 03/25/18 Levothyroxine [Synthroid] 50 mg PO DAILY 01/13/17 03/25/18 Sertraline HCl 50 mg PO DAILY 01/13/17 03/25/18 D-Mannose [Mannxtra] 600 mg PO DAILY 02/04/18 03/25/18 Apixaban [Eliquis] 5 mg PO . HOLD BID 02/20/18 03/25/18 - Allergies Allergies/Adverse Reactions: Allergies Allergy/AdvReac Type Severity Reaction Status Date / Time morphine Allergy Anaphylaxis Verified 01/13/17 19:46 Sulfa (Sulfonamide AdvReac Rash Verified 06/14/16 13:06 Antibiotics) Review of Systems - Constitutional Constitutional: reports: Fatigue. denies: Fever - Ears, Nose & Throat Ears, Nose & Throat: reports: Dental decay - Respiratory Respiratory: denies: SOB at rest - Gastrointestinal Gastrointestinal: reports: Good appetite. denies: Abdominal pain, Constipation, Diarrhea, Nausea - Genitourinary Genitourinary: reports: Incontinence - Musculoskeletal Musculoskeletal: reports: Stiffness, Limited range of motion (left side now with broken wrist), Muscle weakness, Transfer issues (still able to transfer; no walking) - Integumentary Integumentary: reports: Dryness, Other (skin tear left arm) - Neurological Neurological: reports: General weakness, Memory problems - Psychiatric Psychiatric: denies: Depression, Anxiety - Endocrine Endocrine: reports: Hypothyroidism - Hematologic/Lymphatic Hematologic/Lymphatic: reports: Bruising - All Other Systems All Other Systems: reports: Reviewed and negative Physical Exam - Vital Signs Temperature: 96.4 C Pulse Rate: 72 (irregular) Respiratory Rate: 18 O2 Saturation: 95 (ra @ rest) Blood Pressure: 118/82 - Physical Exam General Appearance: positive: No acute distress, Alert Eyes Bilateral: positive: Normal inspection ENT: positive: No signs of dehydration, Other (missing many teeth) Neck: positive: No JVD, Trachea midline. negative: Lymphadenopathy (R), Lymphadenopathy (L) Cardiovascular: positive: Irregular Respiratory: positive: Diminished in bases, Rales (crackles LLL, no cough). negative: Wheezes Abdomen: positive: Soft, Nml bowel sounds Skin: positive: Pallor, Dryness, Wound (see HPI) Extremities: positive: Pedal edema Neurologic/Psychiatric: positive: Mood/affect nml, Disoriented to time, Weakness Palliative Care - POLST Patient has POLST: No Pain: Location (at left wrist; with movement only; denies headache; knees tender to palpation) Constipation: No Feelings of wellbeing/Perceived Quality of Life: Good, Acceptable Performance Status: Patient still able to feed herself, needs cueing and monitoring. No choking observed. Patient is actually transferring okay despite the left wrist brace. She has not been ambulating for the last few days, but can pivot transfer. - Palliative Care Discussion: Daughter not present for the visit, we had agreed to revisit advanced care planning on her return, she did ask for a follow-up visit relating concerns about her recent fall. Patient currently manageable with her current level of functioning, if deteriorated would need to look at another arrangement. Patient is getting more more difficult to get out, is helpful to be able to access care at home Impression and Recommendations - Palliative Care Impression: This is a 87-year-old woman with multiple comorbidities, including vascular dementia, recurrent UTIs, atrial fib, and functional decline. She did have a ground-level fall with a pontine hemorrhage, does appear to be recovering without any acute symptoms of neurological demise. She is currently with her anti-coag Eliquis on hold, has been instructed to follow-up on this coming Friday. Palliative care addressing acute concerns for follow-up and home visit, will continue to provide support for defining goals of care, symptom management, and simplifying treatment plan Recommendations/Counseling Done: 1. Congestive heart failure. Patient has been on hold for her furosemide 40 mg daily, this was held secondary to hypotension. Patient does not present with hypotension or signs of dehydration at visit today. She does have some symptoms of fluid overload with some mild lower extremity edema and crackles in her left lower lobe. Will restart gently at 20 mg daily, can reevaluate at her Friday MD visit. Daughter absent from home, given patient half tab furosemide as caregiver cannot independently medicate. 2. Pontine hemorrhage. Patient's neuro checks appear within normal limits. Patient denies headache pain or changes in vision. Scalp laceration stapled with 4 bandar no signs or symptoms of infection. 3. Skin tear left arm. Cleansed with normal saline, reapplied skin care/tear dressing. No signs or symptoms of infection instructed to leave on 5-7 days. 4. History of UTIs. Patient did present with positive urine and symptoms during daughter's absence, has been treated appears to be resolved at this point in time. She is on d-mannose to attempt to prevent further infections. 5. Advanced care planning. Will defer to future visits as not available to meet with daughter today. Time Spent: 40 minutes with getting 50% of this done in counseling regarding medication management and anticipatory guidance, wound care completed
== END 2018-03-25 16:53 | disposition home or self-care (01) ==
LOC: PC 16:52
PROVIDERS: ATTEND Nurse Practitioner Adult Health
DX: Z51.5 Encounter for palliative care (principal); I69.911 Memory deficit following unspecified cerebrovascular disease; F01.50 Vascular dementia, unspecified severity, without behavioral disturbance, psychotic disturbance, mood disturbance, and anxiety; I50.9 Heart failure, unspecified; F32.9 Major depressive disorder, single episode, unspecified; R32 Unspecified urinary incontinence; E03.9 Hypothyroidism, unspecified; I48.91 Unspecified atrial fibrillation; S06.309D Unspecified focal traumatic brain injury with loss of consciousness of unspecified duration, subsequent encounter; S41.102D Unspecified open wound of left upper arm, subsequent encounter; S69.92XD Unspecified injury of left wrist, hand and finger(s), subsequent encounter; W19.XXXD Unspecified fall, subsequent encounter; R29.6 Repeated falls; Z87.440 Personal history of urinary (tract) infections; Z79.82 Long term (current) use of aspirin; Z79.01 Long term (current) use of anticoagulants
CPT/HCPCS: 99349

== ENCOUNTER 2018-07-16 08:00 | Outpatient (CLI) | payer MEDICARE, MEDICAID ==
[2018-07-16 19:58] LABS: BILIRUBIN,URINE NEGATIVE (NEGATIVE); GLUCOSE, URINE (UA) NEGATIVE (NEGATIVE); KETONES,URINE (UA) NEGATIVE (NEGATIVE); LEUKOCYTE ESTERASE, URINE LARGE (NEGATIVE); NITRITE,URINE NEGATIVE (NEGATIVE); OCCULT BLOOD,URINE TRACE-LYSE (NEGATIVE); PH,URINE 6.5 PH (5.0-7.5); PROTEIN,URINE NEGATIVE (NEGATIVE); UROBILINOGEN,URINE 0.2 (NORMAL) E.U./dL (NORMAL)
[2018-07-16 20:11] LABS: CLARITY,URINE CLOUDY (CLEAR)
[2018-07-16 20:12] LABS: BACTERIA,URINE Few /HPF (None Seen); SQUAMOUS EPITHELIAL CELL,UR FEW Squamous (<= Few)
== END 2018-07-16 23:59 | disposition home or self-care (01) ==
LOC: LAB.R 08:00
PROVIDERS: ATTEND Nurse Practitioner Adult Health
DX: R30.0 Dysuria (principal)
CPT/HCPCS: 81001; 81003; 87077; 87086; 87181

== ENCOUNTER 2018-07-19 12:58 | Outpatient (CLI) | payer MEDICARE, MEDICAID | END 2018-07-19 12:59 | disposition short-term general hospital (02) | LOC: EMS 12:58 | PROVIDERS: ATTEND Surgery | DX: R41.82 Altered mental status, unspecified (principal) | CPT/HCPCS: A0425; A0429 ==

== ENCOUNTER 2018-10-15 16:14 | Outpatient (CLI) | payer MEDICARE, MEDICAID ==
--- NOTE | 2018-10-15 16:57 | CONSULTATION NOTE ---
Palliative Care Follow Up - Referral Referring Provider: Dr. Cindy Bolton Time of Visit: [id number] Referral setting: Home Referral Reason: Cough/Dementia/Goals of Care - Information Sources Records reviewed: Previous records reviewed History/Review of Systems obtained from: Family (raúl Jarquin provided information) Exam limitations: Clinical condition (patient with dementia; but can answer yes/no to some questions) - History of Present Illness Update Brief HPI Update: This is a delightful 88-year-old woman who has dementia, of vascular origin, with multiple comorbidities including atrial fib on Eliquis, heart failure, osteoarthritis, history of ischemic bowel, and history of depression. Patient had developed in June, acute mental status changes, and was admitted to [facility] with UTI and sepsis. Patient has long-term history of recurrent UTIs. She was discharged then to the [facility], for rehab, this was a fairly negative experience for the daughter, she was returned home and then supported by [facility]. Had agreed in the context of support that home health services was adequate at this point in time, but they have since discharge and palliative care visit today to evaluate cough, complete goals of care conversation, and establish new baseline. Patient had been with viral upper respiratory infection in early August, had been doing fairly well had cleared at baseline and now has recurrence. She does have a moist cough, it is mostly upper bronchial, her lungs are clear, no wheezing, crackles are rhonchi. Her O2 sats are 91%, she does not have any changes in her mental status, her appetite's been good, she has not been noted to have any choking. She has had a history of it about for 1 week, does notice that it is improving, they do have an inhaler from when they last saw Dr. Grossman for last episode, difficult for patient to comprehend given her dementia. Patient has been discontinued off her carver Gela by her [employer] supervisor as well as her Toviaz as this was not available. Her daughter does feel like she has been a little bit more clear, she does present is bright eyed, easily engaged, still has a week a little smile and sense of humor. She denies any distress, is easily engaged but only able to answer questions of yes no matter relevant to her current status. Patient has had ongoing cognitive decline, daughter is willing to continue to be primary caregiver with [employer] support as long as patient can transfer. Patient did gain some functional status back with PT/OT, can walk a few steps, and pivot transfer actually her most limiting symptom is her knee pain as far as tolerating activity. This is controlled with acetaminophen 500 mg tabs 1-2 tabs twice daily. Revisit of POLST, patient has been a full code up to this point in time, daughter is been talking to her other 5 siblings, does feel at this point in time she has agreement to be able to change this. We will go ahead and update JES ST to reflect current goals of care. Social History - Living Situation Living arrangement: At home Living Situation: With family Support System: Patient lives with her daughter Milka who is her primary caregiver, she does work and has 4 days of caregiving through [employer]. She does have some stable caregivers though this fluctuates at times. Her other sister down in [place], does take her for a week and here there to give her some respite. Medications/Allergies - Medications Home Medications: Ambulatory Orders Medication Instructions Recorded Confirmed Atorvastatin [Lipitor] 20 mg PO DAILY 01/13/17 05/14/18 Cholecalciferol (Vitamin D3) 2,000 units PO DAILY 01/13/17 10/15/18 [Vitamin D3] Ferrous Sulfate [Slow Fe] 325 mg PO DAILY 01/13/17 10/15/18 Furosemide [Lasix] 40 mg PO .QOD 01/13/17 10/15/18 Levothyroxine [Synthroid] 50 mcg PO DAILY 01/13/17 10/15/18 Sertraline HCl 50 mg PO DAILY 01/13/17 10/15/18 D-Mannose [Mannxtra] 600 mg PO DAILY 02/04/18 10/15/18 Apixaban [Eliquis] 2.5 mg PO BID 02/20/18 05/14/18 Acetaminophen 1,000 mg PO BID 10/15/18 10/15/18 Furosemide 20 mg PO .QOD 10/15/18 10/15/18 Guaifenesin [Mucinex] 600 mg PO BID PRN 10/15/18 10/15/18 Loperamide [Imodium] 1 mg PO DAILY PRN 10/15/18 10/15/18 - Allergies Allergies/Adverse Reactions: Allergies Allergy/AdvReac Type Severity Reaction Status Date / Time morphine Allergy Anaphylaxis Verified 01/13/17 19:46 Sulfa (Sulfonamide AdvReac Rash Verified 06/14/16 13:06 Antibiotics) Review of Systems - Constitutional Constitutional: reports: Fatigue, Weight loss (at time in [place] 154; feels may have gained a few pounds now home). denies: Fever, Chills - Ears, Nose & Throat Ears, Nose & Throat: reports: Hearing loss, Other (poor dentition) - Respiratory Respiratory: reports: Cough (moist), Sputum production (light yellow). denies: SOB at rest - Gastrointestinal Gastrointestinal: reports: Diarrhea (loose stools; uses 1/2 immodium every few days) - Genitourinary Genitourinary: reports: Incontinence - Musculoskeletal Musculoskeletal: reports: Stiffness, Muscle weakness, Joint pain (bilateral knee pain), Assistive devices (uses walker for few steps only), Transfer issues - Integumentary Integumentary: reports: Dryness - Neurological Neurological: reports: General weakness, Memory problems - Endocrine Endocrine: reports: Hypothyroidism - Hematologic/Lymphatic Hematologic/Lymphatic: reports: Recurrent infections (hx of UTI's) - All Other Systems All Other Systems: reports: Other (limited by dementia) Physical Exam - Vital Signs Temperature: 36.7 C Pulse Rate: 70 Respiratory Rate: 18 O2 Saturation: 91 (ra @ rest) Blood Pressure: 112/64 - Physical Exam General Appearance: positive: No acute distress, Alert Eyes Bilateral: positive: Normal inspection ENT: positive: No signs of dehydration Neck: positive: No JVD, Trachea midline Cardiovascular: positive: Regular rate & rhythm Respiratory: positive: Other (moist bronchial cough; clears with cough effort). negative: Wheezes, Rales Abdomen: positive: Non-tender, Soft, Nml bowel sounds Skin: positive: Pallor, Dryness Extremities: positive: Pedal edema (trace up to calf; improved from baseline; QOD dose addresses) Neurologic/Psychiatric: positive: Mood/affect nml, Disoriented to time Palliative Care - POLST Patient has POLST: Yes POLST Status: DNR, Selective Treatment (completed at today's visit) Pain: Pain unchanged, Location (bilateral knee pain; worse with increased activity; fluctuates) Tiredness/Fatigue: Moderate (4-6) Drowsiness/Sedation: Mild (1-3) Performance Status: Patient is able to get from sit to stand with maximum assist, can pivot and transfer, walk with a few steps with walker. She is dependent on caregivers for bathing, she is able to feed herself with cueing and encouragement. She does need 24/7 supervision. She does have [employer] for 4 days a week. - Palliative Care Discussion: Patient denies any concerns or worries. Conversation with daughter to revisit JES AUGUSTE, reports she has had final conversations with other siblings other than the one sister who is coming to visit today patient not seen for 6 years. We reviewed that she does want her to be a DNA R, she does understand that the sequela of CPR would be problematic. She is a selective treatments, they would treat reversible conditions, would not want to prolong any kind of suffering if she had decrease in her Quality of life and or unable to maintain the level of independence she has currently at her daughter's. We discussed end of life, daughter does not feel like if she were going to have a prolonged decline that she would want to care for her in the home setting. She was distressed though at her experience of Jim, so will need to revisit at the time of her decline what makes sense. She would like to keep her home for as long as possible. She very much enjoys her mom though it is a significant amount of work for her to care for her in the home setting. At this point in time would accept antibiotics, she has had frequent antibiotics through the course of her multiple UTIs, as well as it would depend on the situation regarding medically assisted nutrition. We discussed these are not decisions that need to be made at this point in time, though could be weighed in the context of the situation in the future Impression and Recommendations - Palliative Care Impression: This is an 88-year-old woman with multiple comorbidities who presents with increased moist cough, most likely viral in origin today. She also continues with cognitive decline, though is doing much better after her recent hospital stay and support through home health. They have taken her off her Toviaz and carvediol, daughter does feel this is increased her alertness. Palliative care to continue provide support regarding goals of care, focusing on quality of life, anticipatory guidance. Recommendations/Counseling Done: 1. Cough. Patient does present with moist cough, no acute signs or symptoms of progressive respiratory decline, most likely viral in origin. Did review with daughter increased signs or symptoms to follow-up with chest x-ray. She is doing somewhat better, will continue with the guaifenesin 600 mg twice daily to help with secretions, did encourage to try and use inhaler if possible. 2. CHF. Patient recently with [employer] supervisor, patient continues to be quite hypotensive, did discontinue carver Gela. Daughter is aware patient's heart continues to be of poor functioning, there is really nothing more to do diagnostically or to support medical the any changes. They do expect ongoing decline. 3. Lower extremity edema. Patient is on furosemide alternating 20 with 40 every other day, this does appear to manage her lower extremity edema without adding to the hypotension now that she is off the carvidiol. Daughter continues to monitor appropriately. 4. Pain bilateral secondary osteoarthritis. Patient currently on acetaminophen 1000 mg twice daily, with PRN dosing of 500 mg in between. Counseling provided regarding the use of topicals, consider CBD, Aspercreme, or Biofreeze. Patient is not a candidate for NSAIDs given her underlying cardiac. 5. Advanced care planning. Completed POLST today with daughter, copy taken for medical record. [place]our[place] to [place] Will get copy to her primary care provider. Counseling provided regarding goals of care and implementation of the POLST. Time Spent: 45 minutes with greater than 50% of this done in counseling regarding goals of care, management of symptoms, and anticipatory guidance
== END 2018-10-15 16:15 | disposition home or self-care (01) ==
LOC: PC 16:14
PROVIDERS: ATTEND Nurse Practitioner Adult Health
DX: Z51.5 Encounter for palliative care (principal); F01.50 Vascular dementia, unspecified severity, without behavioral disturbance, psychotic disturbance, mood disturbance, and anxiety; I48.91 Unspecified atrial fibrillation; F32.9 Major depressive disorder, single episode, unspecified; I50.9 Heart failure, unspecified; R05 Cough; M19.90 Unspecified osteoarthritis, unspecified site; M25.561 Pain in right knee; M25.562 Pain in left knee; H91.90 Unspecified hearing loss, unspecified ear; R19.7 Diarrhea, unspecified; R32 Unspecified urinary incontinence; E03.9 Hypothyroidism, unspecified; I95.9 Hypotension, unspecified; Z66 Do not resuscitate; Z87.440 Personal history of urinary (tract) infections; Z79.01 Long term (current) use of anticoagulants
CPT/HCPCS: 99349

== ENCOUNTER 2019-02-28 11:20 | Outpatient (CLI) | payer MEDICARE, MEDICAID | END 2019-02-28 11:21 | disposition EMS.NT | LOC: EMS 11:20 | PROVIDERS: ATTEND Surgery | DX: Z03.89 Encounter for observation for other suspected diseases and conditions ruled out (principal) ==

== ENCOUNTER 2019-03-02 08:00 | Outpatient (CLI) | payer MEDICAID, MEDICARE ==
[2019-03-03 08:59] LABS: BILIRUBIN,URINE NEGATIVE (NEGATIVE); GLUCOSE, URINE (UA) NEGATIVE (NEGATIVE); KETONES,URINE (UA) NEGATIVE (NEGATIVE); LEUKOCYTE ESTERASE, URINE MODERATE (NEGATIVE); NITRITE,URINE POSITIVE (NEGATIVE); OCCULT BLOOD,URINE MODERATE (NEGATIVE); PH,URINE 5.5 PH (5.0-7.5); PROTEIN,URINE 30 mg/dL (NEGATIVE); UROBILINOGEN,URINE 0.2 (NORMAL) E.U./dL (NORMAL)
[2019-03-03 09:05] LABS: CLARITY,URINE HAZY (CLEAR)
[2019-03-03 09:12] LABS: BACTERIA,URINE Few /HPF (None Seen); SQUAMOUS EPITHELIAL CELL,UR FEW Squamous (<= Few)
== END 2019-03-02 23:59 | disposition home or self-care (01) ==
LOC: LAB.R 08:00
PROVIDERS: ATTEND Nurse Practitioner Adult Health
DX: R30.0 Dysuria (principal)
CPT/HCPCS: 81001; 81003; 87077; 87086; 87181

== ENCOUNTER 2019-03-07 15:11 | Outpatient (CLI) | payer MEDICARE | END 2019-03-07 15:12 | disposition critical access hospital (66) | LOC: EMS 15:11 | PROVIDERS: ATTEND Surgery | DX: R53.1 Weakness (principal) | CPT/HCPCS: A0425; A0429 ==

== ENCOUNTER 2019-03-07 15:33 | Emergency (ER) | payer MEDICARE ==
[2019-03-07] MEDS ORDERED: SODIUM CHLORIDE 0.9% 1,000 ML IV ONE (15:47)
--- NOTE | 2019-03-07 15:48 | ED Physician Documentation ---
History of Present Illness - Stated complaint Stated Complaint: AMS - Chief complaint Chief Complaint: General - History obtained from History obtained from: Family, EMS - History of Present Illness Timing: Other (This is a very pleasant but very demented 88-year-old woman who presents by ambulance accompanied by her daughter at baseline she requires help with walking. She usually use is a walker combine with a gait belt. She requires assistance feeding herself. She is incontinent of urine. More recently she has had diarrhea and 5 days ago was diagnosed with a UTI. Culture was sensitive to Augmentin which she is on. Despite that she has had worsening with poor appetite and is now basically bedbound.) Review of Systems Unable to obtain: Dementia PD PAST MEDICAL HISTORY - Past Medical History Cardiovascular: Congestive heart failure, Coronary artery disease, DC, Atrial fibrillation GI: Other (ischemic bowel disease in 2009) : Incontinence, Chronic bladder infection, Renal insuffiency HEENT: Chronic vision loss, Glaucoma, Chronic hearing loss Psych: Depression Musculoskeletal: Osteoarthritis, Other (left shoulder fracture 2017; right rib fracture 2017) Derm: Other - Past Surgical History Past Surgical History: Yes General: Bowel surgery (resection for ischemic bowel), Hiatal hernia repair /CARDIAC CATH 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: Other Cardiovascular: CABG, Pacemaker - Present Medications Home Medications: Ambulatory Orders Medication Instructions Recorded Confirmed Atorvastatin [Lipitor] 20 mg PO DAILY 01/13/17 05/14/18 Cholecalciferol (Vitamin D3) 2,000 units PO DAILY 01/13/17 10/15/18 [Vitamin D3] Ferrous Sulfate [Slow Fe] 325 mg PO DAILY 01/13/17 10/15/18 Furosemide [Lasix] 40 mg PO .QOD 01/13/17 10/15/18 Levothyroxine [Synthroid] 50 mcg PO DAILY 01/13/17 10/15/18 Sertraline HCl 50 mg PO DAILY 01/13/17 10/15/18 D-Mannose [Mannxtra] 600 mg PO DAILY 02/04/18 10/15/18 Apixaban [Eliquis] 2.5 mg PO BID 02/20/18 05/14/18 Acetaminophen 1,000 mg PO BID 10/15/18 10/15/18 Furosemide 20 mg PO .QOD 10/15/18 10/15/18 Guaifenesin [Mucinex] 600 mg PO BID PRN 10/15/18 10/15/18 Loperamide [Imodium] 1 mg PO DAILY PRN 10/15/18 10/15/18 - Allergies Allergies/Adverse Reactions: Allergies Allergy/AdvReac Type Severity Reaction Status Date / Time capsaicin Allergy Anaphylaxis Verified 03/07/19 15:44 cerivastatin [From Baycol] Allergy Anaphylaxis Verified 03/07/19 15:43 ciprofloxacin [From Cipro] Allergy Rash Verified 03/07/19 15:43 morphine Allergy Anaphylaxis Verified 01/13/17 19:46 Sulfa (Sulfonamide AdvReac Rash Verified 06/14/16 13:06 Antibiotics) - Social History Does the pt smoke?: No Smoking Status: Never smoker Does the pt drink ETOH?: No Does the pt have substance abuse?: No - Immunizations Immunizations are current?: No - POLST Patient has POLST: Yes PD ED PE NORMAL - Vitals Vital signs reviewed: Yes - General General: Other (She is alert and follows simple commands. She even has difficulty with orientation x1, she has to be prompted to say her name. She cannot verbalize where she grew up.) - HEENT HEENT: PERRL, EOMI - Neck Neck: Supple, no meningeal sign, No bony TTP - Cardiac Cardiac: RRR, Other (With soft early systolic murmur) - Respiratory Respiratory: Other (Rhonchi at the bases) - Abdomen Abdomen: Non tender - Extremities Extremities: No edema, No calf tenderness / cord - Neuro Eye Opening: Spontaneous Motor: Obeys Commands Verbal: Confused GCS Score: 14 Results - Vitals Vitals: Vital Signs - 24 hr 03/07/19 03/07/19 15:34 16:03 Temperature 36.6 C Heart Rate 70 70 Respiratory 20 20 Rate Blood Pressure 157/83 H 149/81 H O2 Saturation 95 97 Oxygen O2 Source Room air - Labs Labs: Laboratory Tests 03/07/19 03/07/19 03/07/19 16:25 16:25 16:25 WBC 5.9 RBC 3.91 L Hgb 12.8 Hct 40.5 MCV 103.6 H MCH 32.7 H MCHC 31.6 L RDW 16.1 H Plt Count 92 L MPV 10.9 H Neut # (Auto) 3.2 Lymph # (Auto) 2.1 [place] # (Auto) 0.5 Eos # (Auto) 0.0 Baso # (Auto) 0.0 Absolute Nucleated RBC 0.00 Nucleated RBC % 0.0 Sodium 141 Potassium 3.8 Chloride 106 Carbon Dioxide 25 Anion Gap 10.0 BUN 14 Creatinine 0.9 Estimated GFR (MDRD) 59 L Glucose 131 H Lactic Acid 2.0 Calcium 8.7 Total Bilirubin 1.4 H AST 24 ALT 12 Alkaline Phosphatase 110 Total Protein 7.2 Albumin 3.5 Globulin 3.7 Albumin/Globulin Ratio 0.9 L Lipase 18 L Urine Color Urine Clarity Urine pH Ur Specific [place] Urine Protein Urine Glucose (UA) Urine Ketones Urine Occult Blood Urine Nitrite Urine Bilirubin Urine Urobilinogen Ur Leukocyte Esterase Urine RBC Urine WBC Ur Squamous Epith Cells Urine Bacteria Urine Casts Ur Microscopic Review Urine Culture Comments 03/07/19 17:16 WBC RBC Hgb Hct MCV MCH MCHC RDW Plt Count MPV Neut # (Auto) Lymph # (Auto) [place] # (Auto) Eos # (Auto) Baso # (Auto) Absolute Nucleated RBC Nucleated RBC % Sodium Potassium Chloride Carbon Dioxide Anion Gap BUN Creatinine Estimated GFR (MDRD) Glucose Lactic Acid Calcium Total Bilirubin AST ALT Alkaline Phosphatase Total Protein Albumin Globulin Albumin/Globulin Ratio Lipase Urine Color ORANGE Urine Clarity CLEAR Urine pH 5.0 Ur Specific [place] >=1.030 H Urine Protein 30 H Urine Glucose (UA) NEGATIVE Urine Ketones NEGATIVE Urine Occult Blood SMALL H Urine Nitrite NEGATIVE Urine Bilirubin NEGATIVE Urine Urobilinogen 0.2 (NORMAL) Ur Leukocyte Esterase NEGATIVE Urine RBC 0-5 Urine WBC 0-3 Ur Squamous Epith Cells RARE Squamous Urine Bacteria None Seen Urine Casts 3-5 Hyaline Casts Ur Microscopic Review INDICATED Urine Culture Comments NOT INDICATED - Rads (name of study) 2v chest Radiology: EMP read contemporaneously (nad) PD MEDICAL DECISION MAKING - ED course ED course: 88-year-old woman with severe dementia, lives with family. With a decompensation after a UTI recently. She is on antibiotics and her urine is now clear with fairly unremarkable blood work. Offered observation stay in the hospital which the daughter declined. Departure - Departure Disposition: 01 Home, Self Care Clinical Impression: Muscle weakness Dementia Qualifiers: Dementia type: Alzheimer's disease Alzheimer's disease onset: unspecified onset Dementia behavioral disturbance: without behavioral disturbance Qualified Code(s): G30.9 - Alzheimer's disease, unspecified; F02.80 - Dementia in other diseases classified elsewhere without behavioral disturbance Condition: Good Record reviewed to determine appropriate education?: Yes Instructions: ED Dementia Caregiver Support Comments: Continue current medications. Return anytime if worsening or if you change your mind about stay in the hospital or would like to pursue correction placement. Discussed her medications with your primary care physician, not sure she should actually be on a statin anymore and Tootie deserves a conversation as well.
[2019-03-07 16:33] LABS: BASOPHILS % (AUTO) 0.5 %; EOSINOPHILS % (AUTO) 0.7 %; HGB - HEMOGLOBIN 12.8 g/dL (12.0-16.0); LYMPHOCYTES # (AUTO) 2.1 10^3/uL (1.5-3.5); MEAN CORPUSCULAR HEMOGLOBIN 32.7 pg (27.0-31.0); MEAN CORPUSCULAR HGB CONC 31.6 g/dL (32.0-36.0); MEAN CORPUSCULAR VOLUME 103.6 fL (81.0-99.0); MEAN PLATELET VOLUME 10.9 fL (7.9-10.8); MONOCYTES # (AUTO) 0.5 10^3/uL (0.0-1.0); MONOCYTES % (AUTO) 8.4 %; NEUTROPHILS # (AUTO) 3.2 10^3/uL (1.5-6.6); NEUTROPHILS % (AUTO) 54.1 %; PLT - PLATELET COUNT 92 10^3/uL (130-450); RED BLOOD COUNT 3.91 10^6/uL (4.20-5.40); RED CELL DISTRIBUTION WIDTH 16.1 % (12.0-15.0); WHITE BLOOD COUNT 5.9 x10^3/uL (4.8-10.8)
[2019-03-07 16:46] LABS: ALBUMIN 3.5 g/dL (3.2-5.5); ALBUMIN/GLOBULIN RATIO 0.9 (1.0-2.2); BILIRUBIN,TOTAL 1.4 mg/dL (0.2-1.0); CALCIUM 8.7 mg/dL (8.5-10.3); CREATININE 0.9 mg/dL (0.4-1.0); TOTAL PROTEIN 7.2 g/dL (6.7-8.2)
--- NOTE | 2019-03-07 17:04 | XRAY Report ---
Reason: cough Procedure Date: 03/07/2019 Accession Number: [id number] / [id number] Procedure: XR - Chest 2 View X-Ray CPT Code: 34609 FULL RESULT: EXAM: CHEST RADIOGRAPHY EXAM DATE: 03/07/2019 04:37 PM. CLINICAL HISTORY: Cough. COMPARISON: XR CHEST 1 VIEWS 07/13/2009 4:02 PM. TECHNIQUE: 2 views. FINDINGS: Lungs/Pleura: There are findings consistent with prior sternotomy. There is a pacemaker with leads in the region of the SA and AV nodes. No appreciable consolidation. No pleural effusions or pneumothoraces. Mediastinum: Mild cardiac enlargement. Other: Healed fracture of the left surgical neck of humerus. IMPRESSION: No acute pathology. RADIA
[2019-03-07 17:24] LABS: GLUCOSE, URINE (UA) NEGATIVE (NEGATIVE); KETONES,URINE (UA) NEGATIVE (NEGATIVE); LEUKOCYTE ESTERASE, URINE NEGATIVE (NEGATIVE); NITRITE,URINE NEGATIVE (NEGATIVE); OCCULT BLOOD,URINE SMALL (NEGATIVE); PROTEIN,URINE 30 mg/dL (NEGATIVE); UROBILINOGEN,URINE 0.2 (NORMAL) E.U./dL (NORMAL)
[2019-03-07 17:37] LABS: BACTERIA,URINE None Seen /HPF (None Seen); BILIRUBIN,URINE NEGATIVE (NEGATIVE); CLARITY,URINE CLEAR (CLEAR); ICTOTEST,URINE NEGATIVE; RBC,URINE 0-5 /HPF (0-5); SQUAMOUS EPITHELIAL CELL,UR RARE Squamous (<= Few)
[2019-03-07 17:38] LABS: CASTS, URINE 3-5 Hyaline Casts /LPF
[2019-03-07 18:45] VITALS: BP 145/80
== END 2019-03-07 19:30 | disposition home or self-care (01) ==
LOC: EDUNIT# → ED 15:33
DX: G30.9 Alzheimer's disease, unspecified (principal); F02.80 Dementia in other diseases classified elsewhere, unspecified severity, without behavioral disturbance, psychotic disturbance, mood disturbance, and anxiety; M62.81 Muscle weakness (generalized); R32 Unspecified urinary incontinence; Z95.0 Presence of cardiac pacemaker; Z79.01 Long term (current) use of anticoagulants
CPT/HCPCS: 36415; 51701; 71046; 80053; 81001; 81003; 83605; 83690; 85025; 87040; 87086; 99281; 99284

== ENCOUNTER 2019-03-07 19:31 | Outpatient (CLI) | payer MEDICARE | END 2019-03-07 19:32 | disposition home or self-care (01) | LOC: EMS 19:31 | PROVIDERS: ATTEND Surgery | DX: R41.0 Disorientation, unspecified (principal); R53.83 Other fatigue; Z74.01 Bed confinement status | CPT/HCPCS: A0425; A0428 ==

== ENCOUNTER 2019-03-10 09:00 | Outpatient (CLI) | payer MEDICARE ==
--- NOTE | 2019-03-10 10:09 | CONSULTATION NOTE ---
Palliative Care Follow Up - Referral Referring Provider: Dr. Cindy Bolotn Time of Visit: [phone] Referral setting: Home (seen at daughter demond's home) Referral Reason: Wheezing/AMS - Information Sources Records reviewed: Previous records reviewed History/Review of Systems obtained from: Family (estela Iqbal present for visit;), Caregiver (Janneth who has been with her since September) Exam limitations: Clinical condition (patient with advanced demential; mostly nonverbal) - History of Present Illness Update Brief HPI Update: This is a delightful 88-year-old woman who has dementia, vascular origin, and presents as a FAST7C. She has multiple comorbidities including atrial fib on Eliquis, heart failure, osteoarthritis, history of ischemic bowel, and history of depression. Earlier in the week her daughter Demond who is caring for her called on 8 has patient had altered mental status, increased signs and symptoms of a UTI, and increased weakness. Patient does have long-term history of this, and family fairly accurate in diagnosis. Indeed her UA came back as greater than 100,000, she was treated with amoxicillin/clavulanate 500 mg twice daily x7 days, she finished her last pill today. On 03/07 unfortunately she presented with increased altered mental status, poor appetite, unable to stand and with dehydration. She did receive 1 L of fluid in the ED, chest x-ray was negative, labs were fairly normal other than a bilirubin of 1.4; and GFR of 59 which is her norm. She did not have an elevated white count. They were offered in the office today but declined and she returned home with some improvement. I received a phone call late in the day yesterday, patient had presented with wheezing, decreased sats around 90%, and continued poor intake. She was a little bit better but not worsening, and had accepted a visit in follow-up today. Patient is continued to improve, they did have her sleep in the recliner with her head up today, she does not have lower extremity edema, no crackles, no rhonchi but she does have scattered expiratory wheezes and diminished in her bases. She is afebrile, she is eating and drinking, she is bright able to interact which is an improvement over yesterday. She is eating small amounts. She did void this morning as well as have a bowel movement. She is unable to manage her albuterol inhaler, and unfortunately at this daughter's house does not have available. She does have some respiratory effort, and remains weak, but is able to ambulate a few steps versus nonweightbearing.Daughter Milka, who is the main caregiver, recent turns this afternoon from being out of town. Social History - Living Situation Living arrangement: At home Living Situation: With family Support System: Patient has been staying with her daughter Demond while Milka has been traveling, Milka is her primary caregiver. She does work and has 4 days of caregiving to use [employer]. Her primary caregiver Janneth is present at visit today, reports that she has been having ongoing functional decline, with some increased weakness, and sleeping more overall. Though this was an acute change. Medications/Allergies - Medications Home Medications: Ambulatory Orders Medication Instructions Recorded Confirmed Atorvastatin [Lipitor] 20 mg PO DAILY 01/13/17 03/10/19 Cholecalciferol (Vitamin D3) 2,000 units PO DAILY 01/13/17 03/10/19 [Vitamin D3] Ferrous Sulfate [Slow Fe] 325 mg PO DAILY 01/13/17 03/10/19 Furosemide [Lasix] 40 mg PO .QOD 01/13/17 03/10/19 Levothyroxine [Synthroid] 50 mcg PO DAILY 01/13/17 03/10/19 Sertraline HCl 50 mg PO DAILY 01/13/17 03/10/19 D-Mannose [Mannxtra] 600 mg PO DAILY 02/04/18 03/10/19 Apixaban [Eliquis] 2.5 mg PO BID 02/20/18 03/10/19 Acetaminophen 1,000 mg PO BID 10/15/18 03/10/19 Furosemide 20 mg PO .QOD 10/15/18 03/10/19 Guaifenesin [Mucinex] 600 mg PO BID PRN 10/15/18 03/10/19 Loperamide [Imodium] 1 mg PO DAILY PRN 10/15/18 03/10/19 Carvedilol 3.125 mg PO BID 03/10/19 03/10/19 Saccharomyces Boulardii [Florastor] 250 mg PO BID MDD x 2weeks, then 03/10/19 03/10/19 daily - Allergies Allergies/Adverse Reactions: Allergies Allergy/AdvReac Type Severity Reaction Status Date / Time capsaicin Allergy Anaphylaxis Verified 03/07/19 15:44 cerivastatin [From Baycol] Allergy Anaphylaxis Verified 03/07/19 15:43 ciprofloxacin [From Cipro] Allergy Rash Verified 03/07/19 15:43 morphine Allergy Anaphylaxis Verified 01/13/17 19:46 Sulfa (Sulfonamide AdvReac Rash Verified 06/14/16 13:06 Antibiotics) Review of Systems - Constitutional Constitutional: reports: Fatigue (improved), Poor appetite. denies: Fever, Chills - Eyes Eyes: reports: Vision loss - Ears, Nose & Throat Ears, Nose & Throat: reports: Hearing loss, Other (poor dentition). denies: Mouth lesions - Cardiovascular Cardiovascular: reports: Irregular heart rate, Exertional dyspnea, Decr. exerc ise tolerance, Orthopnea. denies: Edema - Respiratory Respiratory: reports: Wheezing (had her sleep in recliner last night with improvement), Orthopnea, SOB at rest, SOB with exertion. denies: Cough - Gastrointestinal Gastrointestinal: reports: Diarrhea (regular bm today; baseline loose), Poor appetite (improving) - Genitourinary Genitourinary: reports: Incontinence - Musculoskeletal Musculoskeletal: reports: Muscle aches, Stiffness, Limited range of motion, Muscle weakness, Joint pain (bilateral knee pain; use topicals), Assistive devices (has walker for transfers), Transfer issues (usually up in wheelchair) - Integumentary Integumentary: reports: Dryness - Neurological Neurological: reports: General weakness, Memory problems (few words; laughs easily) - Psychiatric Psychiatric: denies: Depression, Anxiety - Endocrine Endocrine: reports: Hypothyroidism - Hematologic/Lymphatic Hematologic/Lymphatic: reports: Bruising (from ED stay), Recurrent infections (hx of utis). denies: Anemia - All Other Systems All Other Systems: reports: Reviewed and negative Physical Exam - Vital Signs Temperature: 96.7 C Pulse Rate: 70 Respiratory Rate: 18 O2 Saturation: 96 (ra @ rest) Blood Pressure: 152/92 - Physical Exam General Appearance: positive: No acute distress, Alert Eyes Bilateral: positive: Normal inspection ENT: negative: Pharyngeal erythema, Oral lesions Neck: positive: Trachea midline, Other (leans head to the left) Cardiovascular: positive: Irregular, Systolic murmur Respiratory: positive: Wheezes (scattered expiratory throughout). negative: No respiratory distress (appears labored with activity/conversation), Rales, Rhonchi Abdomen: positive: Non-tender, Soft, Nml bowel sounds Skin: positive: Pallor, Dryness, Bruising (UE from ED visit) Extremities: positive: Pedal edema (trace pedal edema) Neurologic/Psychiatric: positive: Mood/affect nml, Disoriented to place, Disoriented to time, Weakness Palliative Care - POLST Patient has POLST: Yes POLST Status: DNR, Selective Treatment Pain: Pain unchanged, Location (bilateral knee pain no s/s pain at visit) Sleep: Sleep improved (slept in recliner last night) Performance Status: Patient previous baseline, was able to ambulate few steps with walker for pivot transfers, needing 1 person assist. Patient today needs lifted assistance, 2 person for andrea-care, and remains quite weak and lower extremeities. Patient to be able to be at home successfully, needs to be a 1 person transfer. Patient has benefited in the past from physical therapy, will go ahead and do a [id number] as patient has deteriorated from baseline. - Palliative Care Discussion: Patient unfortunately has had a series of unfortunate events, including her UTI, trip to the ED, and slowly recovering from her acute illnesses. She is not back to baseline, discussed in the context of anticipatory guidance that often patients become at a place where they have a new normal. Unfortunately for her to be cared for at home, she does need to be able to be a 1 person transfer, to be able to meet her needs. Patient does have a POLST in place that was completed last time with daughter, with goal to treat reversible conditions, but end of life to have comfortable respectful at home if possible. Daughter Demond is aware of patient's fragility, will continue to provide support and anticipatory guidance with the hope patient does improve back to baseline. Results - Lab Results Lab results reviewed: Yes Impression and Recommendations - Palliative Care Impression: This is an 88-year-old woman who has had a series of unfortunate events, including acute UTI, altered mental status and decline with dehydration, received a liter fluid at ED suspect this tripped her CHF, and presents today improved but with continued wheezing. Goal is to treat for quality of life, she will be returning to her other daughter's home Milka later today. Patient remains quite fragile, with a goal to focus on quality of life issues. Palliative care to continue provide support Recommendations/Counseling Done: 1. UTI. Patient has improved her fluid intake over the last few hours, she did have a regular void in the bathroom today. She does not appear dehydrated. She did finish her last antibiotic. 2. Wheezing. I suspect this is multifactorial in origin, patient's chest x-ray on the was negative. She did receive a liter of fluid though in the ED, as well as has a history of dyshagia. She is currently eating and drinking, no signs or symptoms of choking today. We will go ahead and treat symptomatically is unable to do albuterol inhaler, with prednisone 10 mg 1 tab daily with food x5 days. Reviewed with daughter if patient has untoward side effects or does not tolerate, may discontinue. 3. Generalized weakness. Patient is quite fragile at 88, with multiple comorbidities. Given her acute illness she has had some functional decline. She has done well in previous exacerbations and declines, with support from physical therapy. We will go ahead and access for patient, and do [id number] today. [id number]. Patient is unable to leave the home secondary taxing considerable effort, patient has had functional decline and presents with generalized weakness, difficulty walking, and needing home exercise program, lower extremity strengthening, and home safety eval given her change in status. Would recommend physical therapy to address the above issues. 4. Advanced care planning. Patient continues to be quite fragile, more difficulty returning back to baseline with each episode, family are quite aware of her condition but want to focus on quality of life. Patient does have a POLST in place with do not attempt resuscitation and selective treatments, with the goals of weighing benefits and burdens as treatment decisions arise moving forward. Time Spent: Minutes with greater than 50% of this done in counseling regarding symptom management, anticipatory guidance, coordination of care regarding acute care needs.Plan to follow-up with daughter Milka tomorrow, and coordinate physical therapy referral to [facility].
== END 2019-03-10 09:01 | disposition home or self-care (01) ==
LOC: PC 09:00
PROVIDERS: ATTEND Nurse Practitioner Adult Health
DX: Z51.5 Encounter for palliative care (principal); Z66 Do not resuscitate; F01.50 Vascular dementia, unspecified severity, without behavioral disturbance, psychotic disturbance, mood disturbance, and anxiety; R53.1 Weakness; N39.0 Urinary tract infection, site not specified; R06.2 Wheezing; F32.9 Major depressive disorder, single episode, unspecified; I48.91 Unspecified atrial fibrillation; I50.9 Heart failure, unspecified; M19.90 Unspecified osteoarthritis, unspecified site; E03.9 Hypothyroidism, unspecified; H54.7 Unspecified visual loss; H91.90 Unspecified hearing loss, unspecified ear; R06.01 Orthopnea; Z79.01 Long term (current) use of anticoagulants; Z87.19 Personal history of other diseases of the digestive system; Z87.440 Personal history of urinary (tract) infections
CPT/HCPCS: 99348

== ENCOUNTER 2019-03-30 13:45 | Outpatient (CLI) | payer MEDICARE ==
--- NOTE | 2019-03-30 19:02 | CONSULTATION NOTE ---
Palliative Care Follow Up - Referral Referring Provider: Dr. Cindy Bolton Time of Visit: [id number] Referral setting: Home Referral Reason: AMS/FTT/Vascular Dementia - Information Sources Records reviewed: Previous records reviewed History/Review of Systems obtained from: Family (daughter Milka) Exam limitations: Clinical condition (patient nonverbal; lethargic) - History of Present Illness Update Brief HPI Update: This is a delightful 88-year-old woman who has dementia, vascular in origin, and presents as a FAST7C. She recently 3 weeks ago had a UTI, she was treated, but had continued to decline. I had seen her on 03/10 she had not returned back to her baseline, had developed some wheezing and poor intake. She had improved some, at that point in time she was seen with her daughter Farida in her home, her primary caregiver Milka had been traveling to [place]. On return home, she remained quite frail, had had some conversation with Milka about whether transitioning to hospice or not was appropriate, but had declined and wanted to see if she "bounced" back. Patient has had multiple hospitalizations, treated infections, with return home though not back to previous level of functioning. So has over the last year declined both functionally and cognitively. Did receive a call on Friday morning, reports patient had continued to improve through the beginning of last week and decline over the weekend,. She was quite lethargic, only eating small amounts, starting the pocket food, and seemed to be picking at things. She was not having any fever or chills, no respiratory distress, though she does have a prolonged expiratory phase and known significant cardiac issues. She reports she been somewhat restless, but not severely agitated, but now has a become a 2 person assist and was wondering if it was time to transition to hospice and comfort support. In conversation today, daughter remains quite sad and wanting to make sure she is done everything, we did discuss with patient's decreased intake even if it was a UTI most likely would not be able to complete a course of antibiotics. Find patient today with glazed eyes, difficulty focusing, has just taken few sips of Thick-It and/or applesauce.Has not had her pill since yesterday morning, she does not appear in any kind of distress, she is quite peaceful and has a sweet smile on her face. She does respond some to her daughter Milka, they had actually gotten her up to the commode as a maximum assist and she had had a bowel movement. Patient has long-term had diarrhea, but has had formed stools most likely with decreased fluid intake over the last couple days. Counseling was provided regarding patient presents as transitioning to end of life, not unexpected to have decreased intake, behavior she is seen, and most likely if did check urine would be positive. Daughter has made a commitment at this point in time, to proceed with hospice, and focus on comfort. Unfortunately her insurance would not cover the medications I had ordered earlier of Lorazepam, Haldol, and liquid antibiotic in response to daughter's request to try if possible. Patient's past medical history includes atrial fib on Eliquis, heart failure, osteoarthritis, history of ischemic bowel, history of depression, history of multiple strokes, history of pontine hemorrhage/ recurrent UTIs with hx of sepsis/ incontinence. Social History - Living Situation Living arrangement: At home Living Situation: With family Support System: Patient has been living with her daughter Milka for about 11 years, originally she was quite self-sufficient and able to drive and manage her own care. She did become more dependent particular after left shoulder fracture in 2017. She progressed on to have increased lower extremity weakness, and become wheelchair- bound. She is also had progressive dementia, with multiple recurrent strokes, multiple UTIs and has had several hospitalizations. Her daughter Milka and [employer] workers have been the main caregivers, she does go to her daughters Farida who is in [place] for respite when Milka needs a break or goes on vacation. Milka is a fabulous advocate and very devoted to her mother, is very tender in this transition time. She does have back problems though, and patient now is currently bedbound, did recommend no further transfers. Also given the rapid decline, recommend she take the time off work, as she has been such as a riccardo part of her mom's care plan. Medications/Allergies - Medications Home Medications: Ambulatory Orders Medication Instructions Recorded Confirmed Atorvastatin [Lipitor] 20 mg PO DAILY 01/13/17 03/10/19 Cholecalciferol (Vitamin D3) 2,000 units PO DAILY 01/13/17 03/10/19 [Vitamin D3] Ferrous Sulfate [Slow Fe] 325 mg PO DAILY 01/13/17 03/10/19 Furosemide [Lasix] 40 mg PO .QOD 01/13/17 03/10/19 Levothyroxine [Synthroid] 50 mcg PO DAILY 01/13/17 03/10/19 Sertraline HCl 50 mg PO DAILY 01/13/17 03/10/19 D-Mannose [Mannxtra] 600 mg PO DAILY 02/04/18 03/10/19 Apixaban [Eliquis] 2.5 mg PO BID 02/20/18 03/10/19 Acetaminophen 1,000 mg PO BID 10/15/18 03/10/19 Furosemide 20 mg PO .QOD 10/15/18 03/10/19 Guaifenesin [Mucinex] 600 mg PO BID PRN 10/15/18 03/10/19 Loperamide [Imodium] 1 mg PO DAILY PRN 10/15/18 03/10/19 Carvedilol 3.125 mg PO BID 03/10/19 03/10/19 Saccharomyces Boulardii [Florastor] 250 mg PO BID MDD x 2weeks, then 03/10/19 03/10/19 daily - Allergies Allergies/Adverse Reactions: Allergies Allergy/AdvReac Type Severity Reaction Status Date / Time capsaicin Allergy Anaphylaxis Verified 03/07/19 15:44 cerivastatin [From Baycol] Allergy Anaphylaxis Verified 03/07/19 15:43 ciprofloxacin [From Cipro] Allergy Rash Verified 03/07/19 15:43 morphine Allergy Anaphylaxis Verified 01/13/17 19:46 Sulfa (Sulfonamide AdvReac Rash Verified 06/14/16 13:06 Antibiotics) Review of Systems - Constitutional Constitutional: reports: Fatigue, Poor appetite, Weight loss. denies: Fever, Chills - Eyes Eyes: denies: Vision loss - Ears, Nose & Throat Ears, Nose & Throat: reports: Dental decay, Dry mouth - Cardiovascular Cardiovascular: reports: Irregular heart rate, Decr. exercise tolerance, Orthopnea - Respiratory Respiratory: reports: SOB at rest (irregular breathing pattern with prolonged respiratory phase), Other (few oral secretions). denies: Wheezing - Gastrointestinal Gastrointestinal: reports: Other (few bites/ pocketing of food/drifts off and can't swallow). denies: Constipation - Genitourinary Genitourinary: reports: Incontinence - Musculoskeletal Musculoskeletal: reports: Stiffness, Limited range of motion, Muscle weakness, Joint pain (left shoulder), Joint swelling (right knee), Other (bedbound most of weekend; max 2 person assist to lift to toilet) - Integumentary Integumentary: reports: Dryness - Neurological Neurological: reports: General weakness, Memory problems - Psychiatric Psychiatric: denies: Behavior disturbances - Hematologic/Lymphatic Hematologic/Lymphatic: reports: Recurrent infections - All Other Systems All Other Systems: reports: Other (limited ROS with dementia) Physical Exam - Vital Signs Temperature: 96.6 C Pulse Rate: 71 Respiratory Rate: 18 O2 Saturation: 96 (ra @ rest) Blood Pressure: 152/82 - Physical Exam General Appearance: positive: No acute distress, Lethargic Eyes Bilateral: positive: Other (nonfocused; looking "elsewhere") ENT: positive: Dry mucous membranes, Other (poor dentition) Neck: positive: Trachea midline Cardiovascular: positive: Irregular, Other (murmur) Respiratory: positive: No respiratory distress, Diminished in bases, Other (prolonged expiratory phase). negative: Wheezes Abdomen: positive: Non-tender, Soft Skin: positive: Pallor, Dryness Extremities: positive: Other (palpaple small walnut size mass back of right knee; mild swelling LE/ right knee > left) Neurologic/Psychiatric: positive: Mood/affect nml, Disoriented to person (unclear if recognizes daughter; does respond to her voice and questions), Disoriented to place, Disoriented to time, Weakness, Unintelligible speech Palliative Care - POLST Patient has POLST: Yes POLST Status: DNR, Comfort Measures (completed with updated goals) Pain: Location (patient with known left shoulder pain residual from fracture; bilateral OA of knees; patient unable to tolerrate opioids in past; has done will with APAP) Tiredness/Fatigue: Severe (7-10) Drowsiness/Sedation: Severe (7-10) Nausea: None Anxiety: Mild (1-3) (has had some restlessness; has settled down) Dyspnea: Moderate (4-6) Performance Status: Patient's functional status has been declining over the year, most acutely over the last few weeks, using only pivot transfers only and now over the last couple weeks unable to bear weight without 2 person assist. Patient is currently bedbound, and appears quite weak. - Palliative Care Discussion: Daughter is very much struggled with patient's transition, she has "bounced back in the past", though she can map decline over the last year, particular over the last few weeks. She does recognize mother is quite frail, and this is a time she is not going to recover from. Her sister Farida, is currently in [place] from which they all are from, because her 's father is declining, she will contact her though as they had planned to return this weekend and may want to come back sooner. She has another sister in [place] as well who has had mu ltiple losses including her and most recently her son to cancer, she will offer her an opportunity to come out but feels like that may be too much as well. She has another sister Sydnee, who is a difficult relationship for her, and though Milka know she is doing the right thing, finds it very difficult to deal with her, she has not seen her mother for 3 months, and is planning to come this week. 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 She is always been quite resourceful. Milka is the D POA, and feels supported by her other siblings. She had originally thought she would not be able to take care of her end of life, and with her dementia thought she may be placed before we got to this point. She has done a riccardo job and is given positive reinforcement for all the things that she has provided so far as an advocate and caregiver and daughter. Impression and Recommendations - Palliative Care Impression: This is an 88-year-old woman who presents with altered mental status, little intake over the weekend, suspect may have had recurrent stroke, given her increased difficulty with swallowing and pocketing of food as new behavior. Goal is to focus on comfort, transition to hospice, and a comfortable at home. Palliative care providing goals of care conversation and transition plan. Recommendations/Counseling Done: 1. Altered mental status. Suspect this is multifactorial in origin, patient has had decreased intake, generalized cognitive and more acute functional decline over the last couple weeks. Suspect she may have had another recurrent TIA and/or stroke. Counseling provided regarding anticipatory guidance, end-of-life transitions for dementia patients usually including decreased intake, dehydration, as well as recurrent infections. Daughter wants to make sure she is covered all her bases, though patient does not present with any acute signs or symptoms of infection, but historically has had AMS and lethargy, I did order liquid oral antibiotic though may not follow through on use. Will monitor patient's ability to take as is unable to picking belt operator today because of cost. Is ordered and available at right aid along with comfort meds tomorrow. 2. Generalized discomfort. Patient does have known osteoarthritic pain, left shoulder injury, has been on intermittent acetaminophen scheduled twice a day. Does he will picking belt operator some Tylenol suppositories so has something to manage for comfort, as well as adult liquid Tylenol if she is awake and alert. Reviewed radiology teacher who comes tomorrow can show her how to give suppository or give if she is uncomfortable. Patient historically has had bad reaction particularly to morphine, daughter is hesitant and less patient in severe distress to introduce morphine, reports she has done well and acetaminophen even after her cardiac surgery. 3. Generalized weakness. Patient is now bedbound, recommended no further transfer out of bed. They will start using the tabs diapers, reviewed hospice aids could help with care and bathing in the bed. 4. CHF. Patient unable to take her meds this morning, does have prolonged expiratory phase this is not new for her. She does not appear in any kind of respiratory distress, is not hypoxic, she does do better sleeping on her back with her head up. 5. Advanced care planning. Goals of care reviewed with daughter, anticipatory guidance provided regarding expected and ongoing decline. Instruction given also if patient were to pass tonight to call 911 and present POLST. Coordination of care with hospice provided regarding equipment needs. New POLST completed with DNA R and comfort measures with the goal to have a peaceful respectful at home. Patient most likely with hours to days, would be surprised that extended into weeks but did encourage daughter to take the next few days off, as patient still somewhat interactive though "drifty". Counseling provided regarding near- awareness. Call to PCP Dr. Bolton, reported findings, she is in agreement for transition to hospice and is expecting order set. Time Spent: 60 minutes with greater than 50% of this done in counseling regarding defining goals of care, anticipatory guidance and coordination of care with hospice team.
== END 2019-03-30 13:46 | disposition home or self-care (01) ==
LOC: PC 13:45
PROVIDERS: ATTEND Nurse Practitioner Adult Health
DX: Z51.5 Encounter for palliative care (principal); F01.50 Vascular dementia, unspecified severity, without behavioral disturbance, psychotic disturbance, mood disturbance, and anxiety; R62.7 Adult failure to thrive; R41.82 Altered mental status, unspecified; I48.91 Unspecified atrial fibrillation; I50.9 Heart failure, unspecified; R32 Unspecified urinary incontinence; R13.10 Dysphagia, unspecified; M25.512 Pain in left shoulder; R53.83 Other fatigue; R53.1 Weakness; H54.7 Unspecified visual loss; M17.0 Bilateral primary osteoarthritis of knee; Z79.01 Long term (current) use of anticoagulants; Z66 Do not resuscitate; Z99.3 Dependence on wheelchair; Z86.73 Personal history of transient ischemic attack (TIA), and cerebral infarction without residual deficits; Z87.440 Personal history of urinary (tract) infections
CPT/HCPCS: 99350